=== PATIENT | female | born 1945 | race Caucasian/White ===

== ENCOUNTER 2016-05-17 14:09 | Emergency (ER) | payer MEDICAID, MEDICARE ==
[~2016-05-17] VITALS: Ht 152.4 cm; Wt 57.3 kg
[~2016-05-17 14:09] MED LIST: CLOB15OI TOP; DIT5 PO; FLONASE; ONDA4TAB48 PO; POLY1PAC PO; PROT40T PO; REG10 PO; SEN PO; ULTRAM50 MG PO
[2016-05-17 14:18] VITALS: BP 115/77; PULSE 113; RESP 12; O2SAT 98
--- NOTE | 2016-05-17 14:35 | ED.REPORT ---
HPI-Abd Pain F 40 and Over Date of Service May 17, 2016 ED Provider: Cayden Elizondo DO A 70 year old female with a history of perforated peptic ulcers, gastric outlet obstruction, and SLE presents to the ED complaining of vomiting that began a few months ago. Patient reports worsening decrease in appetite and decreased fluid intake for the past few days. She has been experiencing hematemesis, constipation and coffee ground emesis. Patient has taken sucralfate and Reglan with no relief and is often unable to keep the medications down. Patient reports 3-4 episodes of urination today. Daughter believes her symptoms have become increasingly worse since onset. She has an appointment scheduled with a GI specialist on 06/04. Patient has not had a BM since 04/30. She was recently seen at [facility] on 05/08 for similar symptoms and received a CT scan that was negative. Nursing Notes Stated Complaint: ADBOMINAL PAIN, VOMITING Chief Complaint: Female Abdominal Pain Nursing Notes Reviewed: Yes Allergies: Coded Allergies: Oxycodone Terephthalate (Verified Allergy, Unknown, Hallucinations, ) oxycodone HCl (Verified Allergy, Unknown, Hallucinations, 05/17/16) zolpidem tartrate (Verified Allergy, Unknown, hallucinations, 05/17/16) aspirin (Verified Adverse Reaction, Unknown, ulcers, 05/17/16) Scheduled Clobetasol-Expunged Drug, Do Not Renew! (Temovate 0.05%-Expunged Drug, Do Not Renew!) 15 Gm Tube 1 APPL TOP PRN APPLY TO AFFECTED AREA FLUTICASONE-Expunged Drug, Do Not Renew! (FLONASE-Expunged Drug, Do Not Renew!) 120 Sprays/16 Gm Aero 120 SPRAYS NA PRN MetoCLOpramide-Expunged Drug, Do Not Renew! (MetoCLOpramide-Expunged Drug, Do Not Renew!) 10 Mg Tablet 10 MG PO TIDAC Ondansetron (Zofran) 4 Mg Tab.rapdis 4 MG PO Q6HP DISSOLVE UNDER TONGUE Oxybutynin-Expunged Drug, Do Not Renew! (Oxybutynin-Expunged Drug, Do Not Renew! ) 5 Mg Tablet 10 MG PO HS PEG 3350-Expunged Drug, Do Not Renew! (Miralax-Expunged Drug, Do Not Renew!) 17 Gm/Pkt Packet 17 GM PO DAILY Pantoprazole-Expunged Drug, Do Not Renew! (Protonix-Expunged Drug, Do Not Renew! ) 40 Mg Tablet.dr 40 MG PO BID 40 MG Tramadol-Expunged Drug, Do Not Renew! (Ultram-Expunged Drug, Do Not Renew!) 50 Mg Tab 50 MG PO Q6HP Scheduled PRN Senna-Expunged Drug, Do Not Renew! (Senokot-Expunged Drug, Do Not Renew!) 8.6 Mg Tablet 2 EA PO BID PRN PRN General Time Seen by MD: 14:34 Chief Complaint Vomiting moderate Hx Obtained From: Patient, Daughter Arrived By: Walk-in Sudden in Onset?: No Onset Occurred: More than a week ago... (3 months) Symptom Duration: Since onset Progression since Onset: Gradually worsening Location: : Diffuse Quality: Painful Radiation: : Does not radiate Severity: Current: Mild Severity: Maximum: Moderate Associated with: Reports: Constipation, Hematemesis, Vomiting Pertinent Negative: Pt denies other symptoms Recent Healthcare: Recent doctor visit, Recent hospitalization Past Medical History Past Medical History 1. Gastric outlet obstruction 2. hx of PUD with acute upper GI bleed 3. Chronic headaches takes OTC Excedrin 4. Overactive bladder 5. Fibromyalgia 6. SLE Past Surgical History Surgical repiar of acute bleeding ulcer in (1985) rue en y gastric bypass multiple upper GI endoscopies Hysterectomy Appendectomy Left arm ORIF Pt reports 6+ surgeries (perforated ulcers) - Dr. Varma 1990 Smoking History Unknown if Ever Smoker Social History Other Social History: Good social support, From out of town Ambulatory Status Independent Review of Systems Decreased appetite Decreased fluid intake Constitutional: Reports: Weakness - generalized, Denies: Chills, Fever Cardiovascular: Denies: Chest pain GI: Reports: Abdominal pain, Constipation, Hematemesis, Nausea, Vomiting ( coffee ground vomit) Female: Reports: Urination decreased Complete sys rev & neg: except as marked. Physical Exam Vital Signs Vital Signs (First) Date Time Temp Pulse Resp B/P Pulse Ox O2 Delivery O2 Flow Rate FiO2 05/17/16 14:18 36.5 113 12 115/77 98 Room Air Initial VS: Reviewed Head / Eyes: Atraumatic, Normocephalic, PERRL Extremities: Vascular intact, Neuro intact, No swelling (No lower extremity edema), No tenderness Skin: Warm, Dry, No cyanosis Neurologic: Alert, Oriented, Nonfocal Psychiatric: Mood/affect normal, Behavior normal, Normal thought content General/Constitutional: Awake, Alert Appearance / Presentation: Positive: Cachectic, Frail (Pt appears very weak) Respiratory / Chest: Atraumatic, Breath sounds NL, Breath sounds = bilat, No respiratory distress Cardiovascular: Regular rhythm, Heart sounds NL Heart Rate / Rhythm: Positive: Tachycardia Abdomen: Atraumatic, Soft, No guarding, No rebound Tenderness/Guarding/Rebound: Positive: Tender LUQ... Bowel Sounds / Distention: Positive: Bowel sounds hypoactive ABDOMEN: Midline abdominal scar from epigastric region down to the pubic symphysis Back: Atraumatic Flank / Spine / Paraspinal: Positive: Lumbar paraspinal tend... (Bilateral lumbar tenderness) ENT: Atraumatic, Airway patent, Mucous membranes moist (Lips are dry) Interpretation & Diagnostics Lab Results Interpretation Result Diagram: 05/17/16 1540 05/17/16 1540 Test 05/17/16 15:40 05/17/16 17:44 White Blood Count 10.8th/mm3 (3.8-10.1) Red Blood Count 5.23mil/mm3 (3.90-5.20) Hemoglobin 14.4g/dL (12.0-15.6) Hematocrit 43.7% (35.0-46.0) Mean Corpuscular Volume 83.6fL (81-100) Mean Corpuscular Hemoglobin 27.5pg (27.0-35.0) Mean Corpuscular Hemoglobin Concent 33.0% (32.0-37.0) Red Cell Distribution Width 14.1% (12.3-15.4) Platelet Count 335bil/L (150-400) Neutrophils (%) (Auto) 70.7% (40-74) Lymphocytes (%) (Auto) 19.4% (14-46) Monocytes (%) (Auto) 8.4% (4-12) Eosinophils (%) (Auto) 0.6% (0-5) Basophils (%) (Auto) 0.7% (0-3) Sodium Level 139mEq/L (134-144) Potassium Level 3.2mEq/L (3.5-5.2) Chloride Level 89mEq/L (97-108) Carbon Dioxide Level 22mmol/L (18-29) Blood Urea Nitrogen 21mg/dL (8-27) Creatinine 0.76mg/dL (0.57-1.00) Estimat Glomerular Filtration Rate 107mL/min (>59) Glucose Level 93mg/dL (60-99) Lactic Acid Level 1.5mmol/L (0.4-2.0) Calcium Level 10.9mg/dL (8.5-10.1) Magnesium Level 2.4mg/dL (1.6-2.6) Total Bilirubin 0.4mg/dL (0.0-1.2) Aspartate Amino Transf (AST/SGOT) 27U/L (0-50) Alanine Aminotransferase (ALT/SGPT) 14U/L (0-32) Alkaline Phosphatase 131U/L (25-165) Total Protein 8.8g/dL (6.4-8.4) Albumin 4.9g/dL (3.4-5.0) Prealbumin 25mg/dL (20-40) Lipase 23U/L (13-60) Hold Urine Received (Received) ECG Interpretation ECG Interpretation: Sinus rhythm Rate 83 bpm Inverted T waves in lead 3 (new compared to 06/2012) Probable inferior infarct Time: 15:08 Interpreted by: ED physician CT Abd / Pelvis Interpretation IMPRESSION: 1. No significant change in gastric distention, suggestive of gastrojejunostomy anastomotic narrowing. Dictated by: Tk Luna M.D. 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 She states that the past 2 weeks have been particularly worse and she does not believe she is much of any liquid or food substance to stay down. She has had a total of [address] Orourke , a beauty therapist in [place] who is now retired. The last dialysis session was 6 years ago. She has an appointment with a beauty therapist in [place] in about 3 weeks. She was told by her PCP to come to the [facility] ER today for help with her symptoms. Her labs look remarkably good given all that she describes and her abdominal CT does demonstrate moderate gastric distention with gastrojejunostomy anastomotic stenosis as seen previously. I spoke with our beauty therapist about this finding and he notes that dilating this area is high risk for a rupture and he does not feel comfortable doing this. He recommended a revision surgery at an academic center. I spoke with Dr. Bond our general surgeon who notes that the patient must be worked up by a beauty therapist and if needed can have revision surgery by an academic center but it would not be done here. As patient's labs were normal (other than mild hypokalemia was replaced in the ER) and that she was feeling better after fluids and antiemetics here, and that all of our consultations were unable to help her, I elected to speak with the doctor sonography technologist from her PCPs office and recommend that she be referred to an academic center for further evaluation and treatment. Dr. Tesfaye will convey this to her PCP tomorrow. Patient was very grateful for the help and glad to be feeling somewhat better, although concerned that her symptoms would likely return shortly. She understood and agreed with the plan Re-Evaluation/Progress #1: Time of Eval: 17:10 Patient Status: Condition unchanged Re-Evaluation/Progress Note: Patient is rechecked and reports that her pain is still present and she continues to feel weak. Re-Evaluation/Progress #2: Time of Eval: 18:19 Patient Status: Condition improved Re-Evaluation/Progress Note: She is informed of her lab results and CT results. Her last dilation was 6 months ago. All of the patient's questions are adressed. She understands and agrees with the treatment plan. Consultation #1: Referral / Consult Name: Kingston Bah MD Call Returned at: 18:08 Cake Washer: Agrees with eval, Agrees with plan, Referred to other consult ( referred to surgery ([facility])) Note: GI specialist Recommends re-do rue en y gastric bypass Consultation #2: Referral / Consult Name: Calderon Bond MD Consulted With: Surgeon Call Returned at: 18:44 Cake Washer: Agrees with eval, Agrees with plan, Referred to other consult ( PCP) Note: Pt needs GI workup with endoscopy and possibly balloon procedure or revision surgery Consultation #3: Referral / Consult Name: Alexis Tesfaye MD Consulted With: Primary care physician Call Returned at: 18:58 Cake Washer: Will see patient, Will see in office, Agrees with eval, Agrees with plan Counseled Regarding: Diagnosis, Lab results, Need for follow-up, When/why to return to ED Discharge & Departure Primary Impression: Anastomotic stenosis of gastrojejunostomy Additional Impressions: Nausea & vomiting Vomiting type: unspecified Vomiting Intractability: non-intractable Qualified Code: R11.2 - Nausea with vomiting, unspecified Hypokalemia Hypercalcemia Leukocytosis Leukocytosis type: unspecified Qualified Code: D72.829 - Elevated white blood cell count, unspecified Disposition: Home Discharge Condition All VS Reviewed: Yes Condition: Improved Patient Instructions: Acute Nausea and Vomiting (ED), Hypokalemia (ED) Additional Instructions: Thank you for trusting us with your care this morning. Your emergency department evaluation including examination, abdominal CT and lab work. I believe the cause for your symptoms are related to a gastrojejunal anastomotic stenosis leading to stomach distention and causing the severe nausea and vomiting you have had. I have consulted with gastroenterology and surgery here and as we discussed they do not feel comfortable doing procedures on you given your complex history. I believe your lab work that you are stable to be discharged home, however I believe you need very close follow-up with a good beauty therapist that could perform a dilation or refer you to an academic center for revision of your gastric bypass. I have discussed your care with Dr. Lynn, a partner of Dr. Young. Please schedule a follow-up appointment with Dr. Young;s office tomorrow to help you schedule a full gastroenterology workup and possible surgical consultation. You may want to consider [facility] or [facility] for the surgery. Please return to the emergency department immediately for any new or worsening conditions including any worsening pain, fevers, chills, worsening pain or uncontrollable vomiting. I hope you feel better soon! Referrals: Kingston Pineda MD (PCP) Megan Young PA-C, John R. MD Scribe Attestation Portions of this note were transcribed by Randy Gutierrez. Idalia, Dr. Elizondo personally performed the history, physical exam and medical decision-making; I reviewed and confirmed the accuracy of the information in the transcribed note. Signed by: Marichuy Nair, 05/17/161909. copies to: Megan Young PA-C; Alexis Tesfaye MD; Kingston Pineda MD, Gary R DO May 17, 2016 14:35 RANDY GUTIERREZ May 17, 2016 14:41
[2016-05-17] MEDS ORDERED: 0.9% Sodium Chloride 1,000 ML IV ONE (14:48)
[2016-05-17] MEDS ORDERED: Pantoprazole 4 mg/mL 10 mL Inj IVPUSH ONE (14:50)
[2016-05-17] MEDS ORDERED: LidocaineVisc 2%:Antacid 1:1 10 mL Syringe PO ONE (14:50)
[2016-05-17] MEDS ORDERED: Ondansetron 2 mg/mL 2 mL Inj IVPUSH ONE (14:50)
[2016-05-17] MEDS ORDERED: MetoCLOpramide 5 mg/mL 2 mL Inj IVPUSH ONE (14:50)
[2016-05-17] MEDS ORDERED: Iohexol 300 mg/mL 30 mL Inj PO ONE (15:25)
[2016-05-17 16:12] LABS: BASOPHILS % (AUTO) 0.7 % (0-3); EOSINOPHILS % (AUTO) 0.6 % (0-5); MONOCYTES % (AUTO) 8.4 % (4-12); Mean Corpuscular Hemoglobin 27.5 pg (27.0-35.0); Mean Corpuscular Volume 83.6 fL (81-100); NEUTROPHILS % (AUTO) 70.7 % (40-74); Platelet Count 335 bil/L (150-400)
[2016-05-17 16:27] LABS: Magnesium 2.4 mg/dL (1.6-2.6)
[2016-05-17 16:32] VITALS: BP 115/60; PULSE 91; RESP 19; O2SAT 100
--- NOTE | 2016-05-17 16:58 | DRSVH ---
PROCEDURE: CT ABDOMEN AND PELVIS WITH CONTRAST ([id number]) INDICATIONS: abd pain TECHNIQUE: After the administration of oral and intravenous contrast, 5 mm thick sections acquired from the diap hragms to the symphysis. 5 mm thick coronal and sagittal reformats were performed. For radiation do se reduction, the following was used: automated exposure control, adjustment of mA and/or kV accordi ng to patient size. COMPARISON: Merged With [facility], CT, ABDOMEN/PELVIS WITH CONTRAST, 05/08/2016, 12:39. FINDINGS: Image quality: Excellent. ABDOMEN: Lung bases: Lung bases are clear. Heart size is normal. Solid organs: Liver and spleen are normal in size and enhancement. Gallbladder is surgically absent . Biliary system is non-dilated. Pancreas enhances normally. No adrenal nodules. Kidneys are norm al in size and enhancement, without hydronephrosis. Peritoneum and bowel: Gastrojejunostomy has been performed. Moderate gastric distention is unchanged . Small bowel is nondistended. No free fluid or air. Nodes and vessels: No retroperitoneal or mesenteric adenopathy. Aorta and inferior vena cava are no rmal in caliber. Miscellaneous: No ventral hernias. PELVIS: Genitourinary: Bladder wall thickness is normal. Miscellaneous: No inguinal hernias or adenopathy. Bones: No suspicious bony lesions. No vertebral body compression fractures. IMPRESSION: 1. No significant change in gastric distention, suggestive of gastrojejunostomy anastomotic narrowing . Dictated by: Tk Luna M.D. on 05/17/2016 at 16:55 Approved by: Tk Luna M.D. on 05/17/2016 at 16:57
[2016-05-17] MEDS ORDERED: Potassium Chloride 20 mEq/15 mL 15mL Oral Soln PO ONE (17:05)
[2016-05-17 19:30] VITALS: BP 120/68; PULSE 89; RESP 17; O2SAT 97
[2016-06-01] MEDS ORDERED: MULT-666 PO (12:47)
[2016-06-01] MEDS ORDERED: excedrin PO (12:47)
[2016-06-30] MEDS ORDERED: SUCR1TAB PO (13:19)
== END 2016-05-17 19:25 | disposition home or self-care (01) ==
LOC: SED 14:09
DX: K91.89 Other postprocedural complications and disorders of digestive system (principal); R11.2 Nausea with vomiting, unspecified; E87.6 Hypokalemia; E83.52 Hypercalcemia; D72.829 Elevated white blood cell count, unspecified; K31.1 Adult hypertrophic pyloric stenosis; M32.9 Systemic lupus erythematosus, unspecified; Z87.11 Personal history of peptic ulcer disease; Z98.84 Bariatric surgery status; Z88.5 Allergy status to narcotic agent; Z88.8 Allergy status to other drugs, medicaments and biological substances; Z88.6 Allergy status to analgesic agent
CPT/HCPCS: 36415; 74177; 80053; 83605; 83690; 83735; 84134; 85025; 93005; 96361; 96374; 96375; 99285; J2405; J2765; J7030; Q9967

== ENCOUNTER 2016-05-22 13:32 | Observation (INO) | payer MEDICARE ==
[~2016-05-22] VITALS: Ht 152.4 cm; Wt 53.6 kg
[2016-05-22 13:35] VITALS: BP 129/67; PULSE 68; RESP 16; O2SAT 100
--- NOTE | 2016-05-22 15:11 | ED.REPORT ---
HPI-Abd Pain F 40 and Over Date of Service May 22, 2016 ED Provider: Dr. Manuel Anderson M.D. 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 She was supposed to receive an endoscopy procedure today but the impaction was noticed on an abdominal CT from her last ER visit (). The patient currently reports left-sided and periumbilical abdominal pain, constipation (last BM 04/30/16), nausea, and vomiting. She denies dysuria, chest pain, shortness of breath, or other symptoms. She was in the ED with similar symptoms five days ago. Nursing Notes Stated Complaint: IMPACTED (SENT BY DR OFFICE) Chief Complaint: Female Abdominal Pain Nursing Notes Reviewed: Yes Allergies: Coded Allergies: Oxycodone Terephthalate (Verified Allergy, Unknown, Hallucinations, ) ibuprofen (Verified Allergy, Unknown, Abdominal Pain, 05/22/16) morphine (Verified Allergy, Unknown, Hallucinations, 05/22/16) oxycodone HCl (Verified Allergy, Unknown, Hallucinations, 05/17/16) zolpidem tartrate (Verified Allergy, Unknown, hallucinations, 05/17/16) aspirin (Verified Adverse Reaction, Unknown, ulcers, 05/17/16) Scheduled Cholecalciferol (Vitamin D3) (Vitamin D) 1,000 Unit Capsule 2,000 UNIT PO DAILY Metoclopramide (Reglan) 5 Mg Tablet 5 MG PO QID Multivitamin (Multivitamins) 1 Each Capsule 1 EACH PO DAILY Omeprazole (Omeprazole) 40 Mg Capsule.dr 40 MG PO BID Sucralfate (Sucralfate) 1 Gm Tablet 1 GM PO QID Scheduled PRN Aspirin/Acetaminophen/Caffeine (Vtwkkmb-Mdhjilpemjtxw-Cmem Tab) 250 Mg-250 Mg- 65 Mg Tablet 2 EACH PO DAILY PRN PRN Headache Ondansetron ODT (Ondansetron ODT) 4 Mg Tab.rapdis 8 MG PO BID PRN PRN For Nausea General Time Seen by MD: 15:10 Chief Complaint Other (Fecal Impaction) Hx Obtained From: Patient Arrived By: Walk-in Sudden in Onset?: No Onset Occurred: More than a week ago... (3 weeks) Symptom Duration: Since onset Location: : LLQ: LUQ: Periumbilical Quality: Painful Severity: Current: Moderate Severity: Maximum: Moderate Associated with: Reports: Constipation, Nausea, Vomiting Pertinent Negative: Relieved by nothing Context Related History: Reports: Abdominal surgery, Bowel obstruction, Peptic ulcer disease Recent Healthcare: Recent doctor visit Similar Sx Previous: Yes Past Medical History Past Medical History Notes: Past Medical History 1. Gastric outlet obstruction 2. hx of PUD with acute upper GI bleed 3. Chronic headaches takes OTC Excedrin 4. Overactive bladder 5. Fibromyalgia 6. SLE 7. Recurrent gastrojejunostomy anastomotic stenosis Past Surgical History Surgical repair of acute bleeding ulcer in (1985) Domingo-en-Y gastric bypass Multiple upper GI endoscopies Hysterectomy Appendectomy Left arm ORIF Pt reports 6+ surgeries (perforated ulcers) - Dr. Varma 1990 Multiple gastric dilations Smoking History Unknown if Ever Smoker Social History Other Social History: Good social support, From out of town Ambulatory Status Independent Review of Systems + Fecal impaction Constitutional: Denies: Fever Respiratory: Denies: Shortness of breath Cardiovascular: Denies: Chest pain GI: Reports: Abdominal pain (Left-sided and periumbilical), Constipation, Nausea, Vomiting Female: Denies: Dysuria Complete sys rev & neg: except as marked. Physical Exam Vital Signs Vital Signs (First) Date Time Temp Pulse Resp B/P Pulse Ox O2 Delivery O2 Flow Rate FiO2 05/22/16 13:35 35.9 68 16 129/67 100 Room Air Initial VS: Reviewed Head / Eyes: Atraumatic, Normocephalic Neck: Supple, Full range of motion Skin: Warm, Dry Neurologic: Alert, Oriented, Nonfocal Psychiatric: Mood/affect normal, Behavior normal, Normal thought content General/Constitutional: Awake, Alert, No acute distress Respiratory / Chest: Breath sounds NL, Breath sounds = bilat, No respiratory distress Cardiovascular: Heart rate NL, Regular rhythm, Heart sounds NL, No gallop, No murmurs, No rubs Abdomen: Atraumatic, Soft, Non-tender, No guarding, No rebound, BS normoactive Back: Atraumatic, No CVA tenderness Head / Eyes: Atraumatic, Normocephalic, PERRL, EOMI ENT: Airway patent, Mucous membranes moist Skin: Atraumatic, Color NL, No rash Rectum / Perineum: Atraumatic, Blood - occult heme -, No gross blood No stool in vault Nontender Interpretation & Diagnostics ABDOMINAL CT W/ ORAL AND IV CONTRAST from previous ED visit (05/17/16): IMPRESSION: 1. No significant change in gastric distention, suggestive of gastrojejunostomy anastomotic narrowing. Dictated by: Tk Luna M.D. on 05/17/2016 at 16:55 Lab Results Interpretation Result Diagram: 05/22/16 1549 05/22/16 1549 Test 05/22/16 15:49 05/22/16 16:25 White Blood Count 9.1th/mm3 (3.8-10.1) Red Blood Count 4.64mil/mm3 (3.90-5.20) Hemoglobin 12.7g/dL (12.0-15.6) Hematocrit 38.7% (35.0-46.0) Mean Corpuscular Volume 83.4fL (81-100) Mean Corpuscular Hemoglobin 27.4pg (27.0-35.0) Mean Corpuscular Hemoglobin Concent 32.8% (32.0-37.0) Red Cell Distribution Width 13.8% (12.3-15.4) Platelet Count 261bil/L (150-400) Neutrophils (%) (Auto) 64.8% (40-74) Lymphocytes (%) (Auto) 21.8% (14-46) Monocytes (%) (Auto) 11.4% (4-12) Eosinophils (%) (Auto) 0.9% (0-5) Basophils (%) (Auto) 0.9% (0-3) Sodium Level 133mEq/L (134-144) Potassium Level 2.8mEq/L (3.5-5.2) Chloride Level 89mEq/L (97-108) Carbon Dioxide Level 26mmol/L (18-29) Blood Urea Nitrogen 14mg/dL (8-27) Creatinine 0.59mg/dL (0.57-1.00) Estimat Glomerular Filtration Rate 144mL/min (>59) Glucose Level 113mg/dL (60-99) Calcium Level 10.0mg/dL (8.5-10.1) Total Bilirubin 0.3mg/dL (0.0-1.2) Aspartate Amino Transf (AST/SGOT) 19U/L (0-50) Alanine Aminotransferase (ALT/SGPT) 11U/L (0-32) Alkaline Phosphatase 92U/L (25-165) Total Protein 7.6g/dL (6.4-8.4) Albumin 4.2g/dL (3.4-5.0) Hold Lemon Top Tube Received (Received) Re-Eval/Medical Decision Med Decision/Clinical Course 70-year-old female with extensive history of gastric outlet obstruction requiring recurrent endoscopic dilations. She presents today with vomiting anytime she tries to take anything by mouth and by her report 3 weeks without a bowel movement. The patient states that on multiple occasions in the past when she has had gastric outlet obstruction, she would have extensive constipation that relieved spontaneously once they I will let obstruction was relieved. The GI service has concerns based on imaging that she has constipation could be severe enough to cause her vomiting. She is clinically dehydrated and hypokalemic. The recommendation from GI for a Gastrografin enema which would be therapeutic. After discussion with radiology, an after hours Gastrografin enema in a dehydrated hypokalemic elderly woman is not felt to be prudent. He was admitted to the hospitalist service on observation status, hydrated and potassium replaced. In an attempt to begin relieving her obstruction, we will start oral Gastrografin as well. Dr. Jackman from GI is aware of the patient's expressed history of frequent constipation related to gastric outlet obstruction. 40meq potassium and NS 1L in ED. Source of Hx: Old records Re-Evaluation/Progress #1: Time of Eval: 18:34 Patient Status: Condition improved Re-Evaluation/Progress Note: Patient rechecked. Rectal exam performed. Re-Evaluation/Progress #2: Time of Eval: 19:31 Patient Status: Condition improved Re-Evaluation/Progress Note: Discussed with patient lab results, diagnosis, and plan for admit with Gastrografin enema in the morning. Patient agrees with plan for care and all questions were addressed. She requests an eventual gastric dilation, which has relieved her symptoms in the past. Code status discussed in the presence of her daughter. Patient is FULL CODE. Consultation #1: Referral / Consult Name: Manuel Bush MD Call Returned at: 18:47 Company Manager: Agrees with eval, Agrees with plan Note: GI: Recommends oral Gastrografin tonight and admit with Gastrografin enema in the morning Consultation #2: Referral / Consult Name: Dmitriy Crow MD Consulted With: Hospitalist Call Returned at: 19:48 Company Manager: Agrees with eval, Agrees with plan, Accepts admit Consultation #3: Referral / Consult Name: Manuel Bush MD Call Returned at: 20:03 Company Manager: Agrees with eval, Agrees with plan Note: GI: Updated with patient's case. Counseled Regarding: Diagnosis, Lab results, Need for admission Discharge & Departure Primary Impression: Dehydration Additional Impressions: Obstipation Hypokalemia Disposition: ADMITTED TO HOSPITAL Discharge Condition All VS Reviewed: Yes Condition: Improved Referrals: Megan Young PA-C (PCP) Florian Rivas PA-C Attestation Portions of this note were transcribed by Christin Chauhan. I, Dr. Anderson, personally performed the history, physical exam, and medical decision-making; I reviewed and confirmed the accuracy of the information in the transcribed note. Signed by: Marichuy Womack, 05/22/2016, 23:00 copies to: Megan Young PA-C; Florian Rivas PA-C, Donald L MD May 22, 2016 15:11 CHRISTIN CHAUHAN May 22, 2016 15:24
[2016-05-22] MEDS ORDERED: 0.9% Sodium Chloride 1,000 ML IV ONE (15:31)
[2016-05-22] MEDS ORDERED: Ondansetron 2 mg/mL 2 mL Inj IV PRN (15:35)
[2016-05-22 16:06] LABS: BASOPHILS % (AUTO) 0.9 % (0-3); EOSINOPHILS % (AUTO) 0.9 % (0-5); MONOCYTES % (AUTO) 11.4 % (4-12); Mean Corpuscular Hemoglobin 27.4 pg (27.0-35.0); Mean Corpuscular Volume 83.4 fL (81-100); NEUTROPHILS % (AUTO) 64.8 % (40-74); Platelet Count 261 bil/L (150-400)
[2016-05-22] MEDS ORDERED: Potassium Chloride 20 mEq/15 mL 15mL Oral Soln PO ONE (18:45)
[2016-05-22] MEDS ORDERED: Alum-Mag Hydrox-Simeth 30 mL Suspension PO PRN (19:50)
[2016-05-22] MEDS ORDERED: Polyethylene Glycol (PEG) 17 Gm Powder PO PRN (19:50)
[2016-05-22] MEDS ORDERED: METO5TAB78 PO (20:11)
[2016-05-22] MEDS ORDERED: CHOL100045 PO (20:11)
[2016-05-22] MEDS ORDERED: ONDA4TAB12 PO (20:11)
[2016-05-22] MEDS ORDERED: ASPI-1148 PO (20:11)
[2016-05-22] MEDS ORDERED: OMEP40CA36 PO (20:11)
[2016-05-22] MEDS ORDERED: MULT1CAP33 PO (20:11)
[2016-05-22] MEDS ORDERED: SUCR1TAB PO (20:11)
[2016-05-22 21:01] LABS: APPEARANCE,URINE CLEAR (CLEAR,HAZY); COLOR,URINE YELLOW (YELLOW)
[2016-05-22 21:02] LABS: OCCULT BLOOD,URINE NEGATIVE (NEGATIVE); UROBILINOGEN,URINE NORMAL (NORMAL)
[2016-05-22] MEDS: 0.9% Sodium Chloride 1,000 ML IV SCH (21:45)
[2016-05-22 21:51] VITALS: BP 116/79; PULSE 67; RESP 18; O2SAT 98
--- NOTE | 2016-05-22 22:07 | PCM.HPMED ---
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 emergency department from her clean up supervisor's office for an enema to resolve a fecal impaction at the transverse and right colon. She was supposed to receive an endoscopy procedure today but the impaction was noticed on an abdominal CT from her last ER visit (05/17/16). The patient currently reports left-sided abdominal pain, constipation (last BM 04/30/16) she attributes this to being dehydrated since she cannot keep fluids down Patient has been complaining of hematemesis/nausea/vomiting. He states that symptoms started 3 months ago and have progressively worsened. She cannot eat, nor can she keep fluids down--has vomited red blood, as well as, coffee-grounds. She denies dysuria, chest pain, shortness of breath, or other symptoms. She is requesting a dilatation procedure today--she believes this is the source of her problem She does report using cannabis oil for her chronic pain issues. Not currently on any narcotics Case discussed with Dr Anderson, due to persistent nausea and vomiting, patient will be admitted to receive enema in an effort to clear her fecal impaction Review of Systems: Pertinent positives as noted in HPI. All other systems were reviewed and are negative Allergies Coded Allergies: Oxycodone Terephthalate (Verified Allergy, Unknown, Hallucinations, ) ibuprofen (Verified Allergy, Unknown, Abdominal Pain, 05/22/16) morphine (Verified Allergy, Unknown, Hallucinations, 05/22/16) oxycodone HCl (Verified Allergy, Unknown, Hallucinations, 05/17/16) zolpidem tartrate (Verified Allergy, Unknown, hallucinations, 05/17/16) aspirin (Verified Adverse Reaction, Unknown, ulcers, 05/17/16) Home Medications From Mindi RichCasper [id number] 1945 05/22/2016 11:30 AM 02/26 Excedrin Extra Strength multivitamin tablet potassium Prilosec 40 mg capsule,delayed release take 1 capsule by oral route every day before a meal Reglan 5 mg tablet take 1 tablet by oral route 4 times every day 30 minutes before meals and at bedtime sucralfate 1 gram tablet take 1 tablet by oral route 4 times every day on an empty stomach 1 hour before meals and at bedtime Vitamin D3 Zofran ODT 4 mg disintegrating tablet take 2 tablet by oral route every [address] on top of the tongue where they will dissolve, then swallow PMH 1. Gastric outlet obstruction 2. Acute upper GI bleed with perforated gastric ulcer 3. Chronic headaches takes OTC Excedrin 4. Overactive bladder 5. Fibromyalgia 6. Systemic Lupus, diagnosis questioned in light of recent blood work showing no evidence of Lupus . Surgical History Revised Billroth II, complicated with post operative complications including infection Hysterectomy Appendectomy Left arm ORIF Family History No history of cancer Social History Hx Alcohol Use: No Hx Substance Use: No Hx Tobacco Use: No Smoking Status: Never Smoker Living Arrangement: with Family (with daughter) Exam Vital Signs Vital Sign - Last Date Time Temp Pulse Resp B/P Pulse Ox O2 Delivery O2 Flow Rate FiO2 05/22/16 13:35 35.9 68 16 129/67 100 Room Air Exam General: Alert, Oriented X3, Cooperative, No acute Distress Eyes: PERRLA, Scleral Anicteric Mouth: Mouth Normal, Mucous Membranes Moist/[place] Neck: Supple, no Thyromegaly, trachea central. Chest & Lungs: Clear to auscultation & percussion, No adventitious breath sounds, no crackles, no wheeze Cardiovascular: Normal S1, Normal S2, No Murmurs/Rubs/Gallops, Regular Rate/ Rhythm, (No JVD, no peripheral edema) Pulses: Radial (present and equal), Dorsalis Pedi (present and equal) Abdomen: Soft, diffusely tender, Non-distended, hypoactive bowel tones. Musculoskeletal: Unremarkable. Normal range of motion, no swollen or erythematous joints Extremities: No edema, no cyanosis, no clubbing. Skin: No rashes. Warm and dry, no erythematous areas Neurological: Grossly neurologically intact, Normal Speech, Sensation Intact Lymphatic: Lymph nodes Cervical and Axillary not palpable Lab and Diagnostics Labs Laboratory Tests Test 05/22/16 15:49 05/22/16 16:25 05/22/16 20:43 White Blood Count 9.1th/mm3 (3.8-10.1) Red Blood Count 4.64mil/mm3 (3.90-5.20) Hemoglobin 12.7g/dL (12.0-15.6) Hematocrit 38.7% (35.0-46.0) Mean Corpuscular Volume 83.4fL (81-100) Mean Corpuscular Hemoglobin 27.4pg (27.0-35.0) Mean Corpuscular Hemoglobin Concent 32.8% (32.0-37.0) Red Cell Distribution Width 13.8% (12.3-15.4) Platelet Count 261bil/L (150-400) Neutrophils (%) (Auto) 64.8% (40-74) Lymphocytes (%) (Auto) 21.8% (14-46) Monocytes (%) (Auto) 11.4% (4-12) Eosinophils (%) (Auto) 0.9% (0-5) Basophils (%) (Auto) 0.9% (0-3) Sodium Level 133mEq/L (134-144) Potassium Level 2.8mEq/L (3.5-5.2) Chloride Level 89mEq/L (97-108) Carbon Dioxide Level 26mmol/L (18-29) Blood Urea Nitrogen 14mg/dL (8-27) Creatinine 0.59mg/dL (0.57-1.00) Estimat Glomerular Filtration Rate 144mL/min (>59) Glucose Level 113mg/dL (60-99) Calcium Level 10.0mg/dL (8.5-10.1) Total Bilirubin 0.3mg/dL (0.0-1.2) Aspartate Amino Transf (AST/SGOT) 19U/L (0-50) Alanine Aminotransferase (ALT/SGPT) 11U/L (0-32) Alkaline Phosphatase 92U/L (25-165) Total Protein 7.6g/dL (6.4-8.4) Albumin 4.2g/dL (3.4-5.0) Hold Lemon Top Tube Received (Received) Received (Received) Urine Color Yellow (YELLOW) Urine Appearance Clear (CLEAR,HAZY) Urine pH 7.0 (5.0-8.0) Urine Specific [place] 1.010 (1.003-1.035) Urine Protein Negativemg/dL (NEG,TRACE) Urine Glucose (UA) Negativemg/dL (NEGATIVE) Urine Ketones >80mg/dL (NEGATIVE) Urine Occult Blood Negative (NEGATIVE) Urine Nitrite Negative (NEGATIVE) Urine Bilirubin Negative (NEGATIVE) Urine Urobilinogen Normalmg/dL (NORMAL) Urine Leukocyte Esterase Negative (NEGATIVE) Urine RBC 0-2/hpf (0-2) Urine WBC 0-5/hpf (0-5) Urine Epithelial Cells Moderate/hpf (NONE-MOD) Urine Crystals None seen (NONE SEEN) Urine Bacteria Few/hpf (NONE-FEW) Urine Hyaline Casts Occasional/lpf (NONE) Urine Granular Casts None seen (NONE SEEN) Urine Waxy Casts None seen (NONE SEEN) Urine Red Blood Cell Casts None seen (NONE SEEN) Urine White Blood Cell Casts None seen (NONE SEEN) Urine Mucus None seen (None Seen) Urine Trichomonas None seen (NONE SEEN) Urine Yeast None (NONE SEEN) Urinalysis Comment None Urine Culture Reflexed Not indicated Result Diagram: 05/22/16 1549 05/22/16 1549 Assessment & Plan Mindi Chavez is a 70 year old female with a medical history including, PUD with acute upper GI bleed, gastric outlet obstruction, and 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 emergency department due to fecal impaction 1. Persistent nausea and vomiting due to Gastric outlet obstruction. Present on admission Patient reports having to have dilation procedure at least 30 times. Patient hoping for another dilation procedure which usually helps with her symptoms - IV fluids resuscitations - nothing by mouth - antiemetic with Zofran PRN 2. Acute fecal impaction. Present on admission Typical for patient to have constipation but not this prolong. - plan for gastografin enema tomorrow 3. Hematemesis. Present on admission. 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 No active bleeding at this time - continue PPI - monitor for further bleeding 4 Hypokalemia. Present on admission Due to vomiting - monitor on telemetry - continue supplementation - Acetaminophen as needed for mild pain/fever/headache - Bowel regimen as needed - Antiemetic as needed Patient is admitted under observation status with expected length of stay less than 2 midnights due to severity of presenting symptoms, risk of adverse event, and complexity of treatment plan. . Resuscitation Status: CPR: Attempt Resuscitation Dmitriy Crow MD May 22, 2016 21:16
--- NOTE | 2016-05-22 23:01 | NUR ---
Admit to room 3031 @21:30 with hyperkalemia, dehydration and obstipation. Alert and oriented x3. Pain 0/10, VSS sat'ing 98% on RA. Oriented to room and poc on whiteboard.
[2016-05-23] VITALS (7 sets, daily range): BP systolic 98–128; BP diastolic 61–68; PULSE 66–80; RESP 16–20; O2SAT 93–99
--- NOTE | 2016-05-23 04:11 | NUR ---
Requesting Gastric Dilation Patient concerned that only gastric dilation will resolve constipation and intestinal stricture. All other tests and procedures are expensive and unnecessary.
--- NOTE | 2016-05-23 06:29 | NUR ---
BM Liquid bowel movement 50cc this AM 06:15
[2016-05-23] MEDS: 0.9% Sodium Chloride 1,000 ML IV SCH (07:11)
--- NOTE | 2016-05-23 11:31 | NUR ---
Communication with dtr Pt req dtr Hope be called and updated (cell [phone]). Dtr called and updated by this RN.
--- NOTE | 2016-05-23 14:13 | CONS ---
[address] [address] CONSULTATION REPORT PATIENT: ABDULKADIR WHITE : 1945 MR#: [id number] ADMIT: 05/22/2016 JOB ID: [id number] DATE OF SERVICE: 05/23/2016 REQUESTING PROVIDER: Manuel Anderson MD, and Dmitriy Crow MD. REASON FOR CONSULTATION: Nausea, vomiting. HISTORY OF PRESENT ILLNESS: This is a 70-year-old female with a history of Billroth II surgery, who has had numerous complications from that surgery requiring eight separate surgeries and redo's. This was done in the mid to late s. Over the years, she has had more than 30 dilatations of her anastomosis but this has not been accomplished in the last six years. Previously it was done by Dr. Orourke from in [place] after she moved to the [facility] from [place] some 16,17 years ago. The patient reports that at her baseline, she has a bowel movement about every four days. However, in more recent time, over the last 3-4 months, she has had significant increasing difficulty with nausea and vomiting and p.o. intolerance. As of April 30, she has not any significant stool output short of a couple of small balls of hard stool. She has also had some discomfort in the left upper quadrant region chronically over this time frame. She was seen by the physician energy assistant in our clinic yesterday and had been complaining of profuse nausea, vomiting, p.o. intolerance. I recommended urgent attention over in the hospital. She was routed to the emergency department and I had originally recommended a therapeutic Gastrografin enema. It sounds like the ER chose to give oral Gastrografin. I do not see a record of that in the computer, but the patient is certain that this happened and she has actually had a remarkably nice result. She has had release of the discomfort right up in the left upper quadrant and this morning now has had two large bowel movements. She has a lot of abdominal gurgling. She is currently not having any nausea, vomiting, and is actually quite a bit improved. ALLERGIES: 1. OXYCODONE. 2. TEREPHTHALATE. 3. ASPIRIN. 4. IBUPROFEN. 5. MORPHINE. 6. OXYCODONE. 7. ZOLPIDEM. MEDICATIONS: The patient regularly takes: 1. Excedrin with aspirin and caffeine. 2. She uses Reglan. 3. Omeprazole. 4. Zofran. 5. Sucralfate. 6. Vitamin D. 7. Multivitamin. 8. It looks like she was written for Protonix twice a day as well. 9. She was additionally taking tramadol. 10. Senna. 11. MiraLAX. 12. Oxybutynin. 13. Fluticasone spray. 14. Clobetasol ointment. PAST MEDICAL HISTORY: Constipation, fibromyalgia, chronic pain, lupus, overactive bladder, headaches, gastric ulcer, recurrent difficulties with her anastomosis. She had a Billroth-II that is been revised as above many times starting back in the 1980s for peptic ulcer disease. She has had hysterectomy, appendectomy, and left arm orthopedic surgery. FAMILY HISTORY: Noncontributory. SOCIAL HISTORY: Her grandson is here visiting. No habits. She uses high CBD, low THC cannabis on a regular basis to help with her pain and headaches. REVIEW OF SYSTEMS: Overall quite improved overnight here in the hospital. Otherwise, no report of any complaints in her other organ systems. PHYSICAL EXAMINATION: Vital signs are stable. The patient is in no distress. Conversational, alert, oriented, appropriate, cooperative. Lungs clear bilaterally. Good respiratory effort. Heart regular. No peripheral pitting edema. Abdomen is soft, nondistended, nontender. Bowel sounds are active. LABORATORIES: CBC is normal. She had some hypokalemia on admission that has been corrected. Today basic metabolic panel has normalized. Calcium is normal. Liver tests are normal. No UTI. IMAGING: CAT scan from May 17 was reviewed and she had a moderate amount of retained stool all throughout the ascending and transverse colon. ASSESSMENT AND PLAN: This is a 70-year-old female with a remote partial gastrectomy for peptic ulcer disease that has been complicated by severe recurrent stenosis requiring dilatations in addition to the eight subsequent surgeries she is apparently had. Fortunately, however, she has done well for the last six years and not required any further dilatations. In recent months, she has had increasing p.o. intolerance, nausea, and vomiting. with a severe and notable drop-off in stool output. Her CAT scan suggests obstipation from the splenic flexure to the cecum, and I suspect this is largely the source for all of her symptoms in that she is currently markedly improved with bowel output. Ultimately, she will need to be evaluated with colonoscopy and this can be accomplished in the outpatient setting. Acutely, I have put her on a full liquid smoothie diet today and have recommended we hold off on the Gastrografin and continue with oral laxative. I have requested another dose of MiraLAX this afternoon. She should be n.p.o. after midnight and will have a look at her Billroth-II anastomosis tomorrow. Anesthesia, will be requested considering her numerous drug allergies, including oxycodone and morphine. COMMENT: Please note that this is no-charge physician encounter. Please do not submit charges for today's note.
--- NOTE | 2016-05-23 15:15 | NUR ---
Social Work: Initial Assessment Data: Pt is a 70 y/o female admitted for dehydration, obstipation, hypokalemia. Pt's PCP is Dr Young, pt's insurance is Medicare. EMR reviewed. Readmit score not listed. DRYCLEANER met with pt at bedside, role explained. Pt states she lives at home with her daughter in a single story home where she uses no DME. Pt states that she has no hx of HH or SNF, no LTC or VA benefits, and is not a caregiver. Pt accepted info regarding AD/DPOA. No d/c planning needs anticipated at this time. DRYCLEANER will continue to follow if needs arise. Assessment: Pt who is independent at baseline. Plan: Pt will d/c home via POV when medically stable. No d/c planning needs anticipated at this time. DRYCLEANER will continue to follow if needs arise. CHATO Donato Addendum: 05/23/16 at 1517 by NADINE LOPEZ Amended: Links added.
[2016-05-23] MEDS ORDERED: Polyethylene Glycol (PEG) 17 Gm Powder PO ONE (15:25)
--- NOTE | 2016-05-23 15:27 | PCM.PNMED ---
Subjective Date of Service May 23, 2016 Subjective denies any new issues/complaints. refused enema last night. Exam Vital Signs Vital Sign - Last Date Time Temp Pulse Resp B/P Pulse Ox O2 Delivery O2 Flow Rate FiO2 05/23/16 14:23 36.4 70 20 128/66 99 Room Air Intake and Output 05/22/16 05/22/16 05/23/16 Cumulative From/Thru 15:00 23:00 07:00 05/22/16 13:35 - 05/23/16 06:35 Intake Total 1000 ml 850 ml 1850 ml Output Total 100 ml 100 ml Balance 1000 ml 750 ml 1750 ml Intake Oral 0 ml 0 ml IV Total 1000 ml 850 ml 1850 ml Output Urine Total 100 ml 100 ml # Bowel Movements 1 1 General: Alert, Oriented X3, Cooperative, No Acute Distress Eyes: Scleral Anicteric Nose: Mucous Membr Moist/[place] Mouth: Mucous Membr Moist/[place] Neck: Supple Chest & Lungs: Chest Wall Normal, Clear to auscultation & percussion Cardiovascular: Regular Rate/Rhythm Pulses: NL carotid, radial, femoral, DP, PT Abdomen: Non-tender, Non-distended, Normoactive bowel tones, Soft Extremities: No cyanosis/clubbing/edma bilat Neurological: Grossly Neurologically Intact, Normal Speech IVs and Medications Medications Reviewed: Medications were reviewed in detail Lab and Diagnostics Result Diagram: 05/22/16 1549 05/23/16 0611 Assessment & Plan 70 year old female with a medical history including, PUD with acute upper GI bleed, gastric outlet obstruction, and 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 Persistent nausea and vomiting due to Gastric outlet obstruction. Present on admission Patient reports having to have dilation procedure at least 30 times. Patient hoping for another dilation procedure which usually helps with her symptoms - appreciate GI consult. will f/u w/ recs - IV fluids resuscitations - nothing by mouth after midnight - antiemetic with Zofran PRN 2. Acute fecal impaction. Present on admission - pt refused enema on admission - will f/u w/ GI recs 3. Hematemesis. Present on admission. 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 No active bleeding at this time - continue PPI - monitor for further bleeding 4. Hypokalemia. Present on admission. Resolved. - monitor on telemetry 5. Acute hyponatremia and hypochloremia. poa. - resolved with IVF - f/u Dispo: 1-2 days pending GI workup Resuscitation Status: CPR: Attempt Resuscitation Nino Pichardo May 23, 2016 15:27
[2016-05-23] MEDS ORDERED: 0.9% NaCl + KCl 20 mEq/L 1,000 ML IV ONE (15:30)
--- NOTE | 2016-05-23 15:45 | NUR ---
CAITLYN explained and signed. Pt's daughter Hope at bedside. Copy of CAITLYN and Medicare self administered medication information given to pt.
--- NOTE | 2016-05-23 18:06 | NUR ---
new order Verbal orders received from Dr. Bush for Miralax one time. Miralax given as ordered. patient having loose stool r/t miralax current diet full liquid. Scope procedure tomorrow per GI doctor. patient will be NPO after midnight per orders. Alert and oriented X3. no sign and symptoms of pain noted. uses call light appropriately and with in reach for safety. New orders for NS with KCL via IV and infusing as ordered rate with out difficulty. Stable mood. Continue to monitor.
[2016-05-24] VITALS (8 sets, daily range): BP systolic 120–143; BP diastolic 67–110; PULSE 65–77; RESP 16–20; O2SAT 97–100
--- NOTE | 2016-05-24 06:00 | NUR ---
Activity Pt up ambulating in room independently this shift. Pt having frequent BM's after Miralax given on day shift. Pt is alert and oriented X3. NPO after midnight. Call light within reach, frequent rounding.
[2016-05-24] MEDS ORDERED: Polyethylene Glycol (PEG) 17 Gm Powder PO SCH (08:30)
[2016-05-24] MEDS ORDERED: Lactated Ringer's 1,000 ML IV ONE ×2 (08:52→09:24)
--- NOTE | 2016-05-24 09:23 | PCM.HPANE ---
Patient Data Surgeon Admitting Provider:Dmitriy Crow MD Attending Provider:Dmitriy Crow MD Primary Care Physician:Megan Young PA-C Other Provider: Reason for Visit Dehydration,Obstipation,Hypokalemia Ht/WT & BMI Height (Feet): 5 Height (Inches): 0.00 Weight (Kilograms): 53.600 Body Mass Index 23.00 Allergies Coded Allergies: Oxycodone Terephthalate (Verified Allergy, Unknown, Hallucinations, ) ibuprofen (Verified Allergy, Unknown, Abdominal Pain, 05/22/16) morphine (Verified Allergy, Unknown, Hallucinations, 05/22/16) oxycodone HCl (Verified Allergy, Unknown, Hallucinations, 05/17/16) zolpidem tartrate (Verified Allergy, Unknown, hallucinations, 05/17/16) aspirin (Verified Adverse Reaction, Unknown, ulcers, 05/17/16) Past Anesthesia History Anesthesia History: Positive for:: Anesthesia Reactions (low bp), Denies:: Abnormal Airway, Difficult Intubation Diabetes History Hx Diabetes?: No MRSA MRSA: No Medications Hypertension Medication: No Home Meds Incl Beta Michaela: No Reported Medications Cholecalciferol (Vitamin D3) (Vitamin D)1,000 Unit Capsule2,000 Unit PO DAILY 05/22/16 Aspirin/Acetaminophen/Caffeine (Liuecvw-Nwaekzveabruh-Layh Tab)250 Mg-250 Mg-65 Mg Tablet2 Each PO DAILY PRN Headache 05/22/16 Multivitamin (Multivitamins)1 Each Capsule1 Each PO DAILY 05/22/16 Ondansetron ODT 4 Mg Tab.rapdis8 Mg PO BID PRN For Nausea 05/22/16 Sucralfate 1 Gm Tablet1 Gm PO QID 05/22/16 Omeprazole 40 Mg Capsule.dr40 Mg PO BID 05/22/16 Metoclopramide (Reglan)5 Mg Tablet5 Mg PO QID 05/22/16 Discontinued Reported Medications Tramadol-Expunged Drug, Do Not Renew! (Ultram-Expunged Drug, Do Not Renew!)50 Mg Tab50 Mg PO Q6HP #30 TAB 06/29/12 FLUTICASONE-Expunged Drug, Do Not Renew! (FLONASE-Expunged Drug, Do Not Renew!) 120 Sprays/16 Gm [id number] Sprays NA PRN 06/29/12 Clobetasol-Expunged Drug, Do Not Renew! (Temovate 0.05%-Expunged Drug, Do Not Renew!)15 Gm Tube1 Appl TOP PRN #15 GM APPLY TO AFFECTED AREA 06/29/12 Pantoprazole-Expunged Drug, Do Not Renew! (Protonix-Expunged Drug, Do Not Renew! )40 Mg Tablet.dr40 Mg PO BID #60 TAB 40 MG 06/29/12 Oxybutynin-Expunged Drug, Do Not Renew! 5 Mg Whiavj89 Mg PO HS 06/29/12 Discontinued Scripts MetoCLOpramide-Expunged Drug, Do Not Renew! 10 Mg Vgrere70 Mg PO TIDAC 30 Days Prov:ChanoJose Carlos nicolasfiorella Simpson DO 07/01/12 PEG 3350-Expunged Drug, Do Not Renew! (Miralax-Expunged Drug, Do Not Renew!)17 Gm/Pkt Wzuiog88 Gm PO DAILY 30 Days Prov:Christina Madden DO 07/01/12 Ondansetron (Zofran)4 Mg Tab.rapdis4 Mg PO Q6HP #30 DISSOLVE UNDER TONGUE Prov:ChanoChristina nicolas Tatiana DO 07/01/12 Senna-Expunged Drug, Do Not Renew! (Senokot-Expunged Drug, Do Not Renew!)8.6 Mg Tablet2 Ea PO BID PRN #60 Prov:Christina Madden DO 07/01/12 History History of ENT Problems?: No Hx of Heart Problems?: Yes Cardiovascular History: Denies:: AICD Congestive Heart Failure Hypertension Pacemaker Valvular Heart Disease Hx of Respiratory Problem?: No Respiratory History: Denies:: Asthma COPD Tuberculosis Use of C-PAP Machine Hx Neurologic Problems?: Yes Neurological History: Positive for:: Headaches Denies:: CVA Other Neurological Pertinent: fibromyalgia Hx of GI Problems?: Yes Gastrointestinal History: Positive for:: Gastroesphageal Reflux Gastrointestinal Bleeding (hx of bleeding upper GI ulcer) Heartburn Other GI Pertinent History: constipation hx gastric outlet obstruction multiple gastic sries, multiple gastric dilations Hx of Problems?: Yes Genitourinary History: Positive for:: Urinary Tract Infection Other Pertinent History: overractive bladder Female Hx: Denies:: Currently Endometriosis Pelvic Inflammatory Problems with Breasts? Skin History: Denies:: History Skin Disorders? Hx Musculoskeletal Problems?: Yes Musculoskeletal History: Positive for:: Systemic Lupus Hx of Psycho/Social Problems?: No Psycho Social History: Denies:: Anxiety Hx Depression Hx Surgeries?: Yes (8 stomach surgeries, 34 endoscopy dialations, appy, hystrectomy, DMITRIY) Hx Any Other Health Problems?: Yes Other History: Denies:: Cancer Thyroid Disease History Blood Transfusions: Positive for:: Accept Blood Products? Denies:: Blood Transfusions Hx Diabetes: No Hx Alcohol Use: NoHx Substance Use: No Smoking Status: Never Smoker Have You Smoked inLast 12 mo: No Stop/Bang Treated for Sleep Apnea?: No Do You Have a CPAP Machine?: No S-Snoring: Do You Snore Loudly: No T-Tired: feel tired, fatigued: Yes O-Obsered: Observed not breath: No P-Blood Pressure: treated: No B- Body Mass Index > 35 kg/m2: No A- Age over 50: Yes N- Neck Large Circumference: No G- Gender Male: No TY Total Score: 2 TY Risk Assessment: Low Risk, <3 Yes Risk Assessment Category Category 1A: Patient has history of documented sleep apnea, and HAS NOT received any narcotic, sedative or anesthesia administration during this stay. Category 1B: Patient has history of documented sleep apnea, and HAS received any narcotic , sedative or anesthesia administration during this stay Category 2: Patient has SUSPECTED Obstructive Sleep Apnea, and HAS received any narcotic , sedative or anesthesia administration during this stay. Category 3: Patient has SUSPECTED Obstructive Sleep Apnea and HAS NOT received narcotic, sedative or anesthesia administration during this stay. Category 4: Outpatient in Procedural Areas with known sleep apnea or who screen positive for High Risk via the STOP/BANG questionnaire. Exam Exam Vital Signs Vital Signs Date Time Temp Pulse Resp B/P Pulse Ox O2 Delivery O2 Flow Rate FiO2 05/24/16 08:43 67 16 133/110 99 Room Air 05/24/16 08:40 75 05/24/16 06:01 36.6 65 20 120/67 97 Room Air 05/24/16 05:25 73 General Appearance: Alert, Oriented X3, Cooperative, No Acute Distress HEENT/AIRWAY: MP 2 Lungs: Clear to Auscultation, Normal Air Movement Heart: Exam Unremarkable, Regular Rate/Rhythm, No Murmurs/Rubs/Gallops Meds/Labs/Diagnostics Admission Meds Current Medications Polyethylene Glycol 17 gm 17 gm OT ONCE PO Last administered on 05/23/16 15:27 ; Start 05/23/16 at 15:25; Stop 05/23/16 at 15:26; Status DC Potassium Chloride/Sodium Chloride 1,000 ml @ 75 mls/hr [id number] ONCE IV Last administered on 05/23/16 16:39; Start 05/23/16 at 15:30; Stop 05/24/16 at 04:49; Status DC Lactated Ringer's (Lr) 1,000 ml @ ud STK-MED ONCE IV Last administered on 08:52; Start 05/24/16 at 08:52; Stop 05/24/16 at 08:53; Status DC Labs Test 05/22/16 15:49 05/22/16 16:25 05/22/16 20:43 05/24/16 06:20 White Blood Count 9.1th/mm3 (3.8-10.1) Red Blood Count 4.64mil/mm3 (3.90-5.20) Hemoglobin 12.7g/dL (12.0-15.6) Hematocrit 38.7% (35.0-46.0) Mean Corpuscular Volume 83.4fL (81-100) Mean Corpuscular Hemoglobin 27.4pg (27.0-35.0) Mean Corpuscular Hemoglobin Concent 32.8% (32.0-37.0) Red Cell Distribution Width 13.8% (12.3-15.4) Platelet Count 261bil/L (150-400) Neutrophils (%) (Auto) 64.8% (40-74) Lymphocytes (%) (Auto) 21.8% (14-46) Monocytes (%) (Auto) 11.4% (4-12) Eosinophils (%) (Auto) 0.9% (0-5) Basophils (%) (Auto) 0.9% (0-3) Total Bilirubin 0.3mg/dL (0.0-1.2) Aspartate Amino Transf (AST/SGOT) 19U/L (0-50) Alanine Aminotransferase (ALT/SGPT) 11U/L (0-32) Alkaline Phosphatase 92U/L (25-165) Total Protein 7.6g/dL (6.4-8.4) Albumin 4.2g/dL (3.4-5.0) Hold Lemon Top Tube Received (Received) Urine Color Yellow (YELLOW) Urine Appearance Clear (CLEAR,HAZY) Urine pH 7.0 (5.0-8.0) Urine Specific [place] 1.010 (1.003-1.035) Urine Protein Negativemg/dL (NEG,TRACE) Urine Glucose (UA) Negativemg/dL (NEGATIVE) Urine Ketones >80mg/dL (NEGATIVE) Urine Occult Blood Negative (NEGATIVE) Urine Nitrite Negative (NEGATIVE) Urine Bilirubin Negative (NEGATIVE) Urine Urobilinogen Normalmg/dL (NORMAL) Urine Leukocyte Esterase Negative (NEGATIVE) Urine RBC 0-2/hpf (0-2) Urine WBC 0-5/hpf (0-5) Urine Epithelial Cells Moderate/hpf (NONE-MOD) Urine Crystals None seen (NONE SEEN) Urine Bacteria Few/hpf (NONE-FEW) Urine Hyaline Casts Occasional/lpf (NONE) Urine Granular Casts None seen (NONE SEEN) Urine Waxy Casts None seen (NONE SEEN) Urine Red Blood Cell Casts None seen (NONE SEEN) Urine White Blood Cell Casts None seen (NONE SEEN) Urine Mucus None seen (None Seen) Urine Trichomonas None seen (NONE SEEN) Urine Yeast None (NONE SEEN) Urinalysis Comment None Urine Culture Reflexed Not indicated Sodium Level 142mEq/L (134-144) Potassium Level 4.3mEq/L (3.5-5.2) Chloride Level 109mEq/L (97-108) Carbon Dioxide Level 20mmol/L (18-29) Blood Urea Nitrogen 6mg/dL (8-27) Creatinine 0.42mg/dL (0.57-1.00) Estimat Glomerular Filtration Rate 212mL/min (>59) Glucose Level 98mg/dL (60-99) Calcium Level 9.2mg/dL (8.5-10.1) Magnesium Level 2.0mg/dL (1.6-2.6) Plan Impression Patient chart reviewed, patient interviewed and anesthestic plan with risks, benefits, and alternatives discussed, and informed consent obtained. ASA Physical Status: ASA2 Mod Systemic Disease Anesthetic Plan: MAC Bene/Risks/Altern/Consents: Yes HP Complete Prior to Induction: Yes Jacob Pagan MD May 24, 2016 09:23
[2016-05-24] MEDS ORDERED: Lactated Ringer's 1,000 ML IV SCH (09:24)
[2016-05-24] MEDS ORDERED: Ondansetron 2 mg/mL 2 mL Inj IVPUSH PRN (09:25)
[2016-05-24] MEDS ORDERED: MetoCLOpramide 5 mg/mL 2 mL Inj IVPUSH PRN (09:25)
--- NOTE | 2016-05-24 10:49 | PCM.DIMED ---
Discharge Instructions Date of Service May 24, 2016 Dates of Hospitalization May 22, 2016 at 20:28 Discharge Diagnosis Discharge Diagnosis 1. Persistent nausea and vomiting due to Gastric outlet obstruction. Present on admission. Resolved. - post Esophagogastroduodenoscopy (EGD) and dilation procedure on 05/24/16 2. Acute fecal impaction. Present on admission. Resolved. 3. Hematemesis. Present on admission. Resolved No active bleeding at this time 4. Acute Hypokalemia. Present on admission. Resolved. 5. Acute hyponatremia and hypochloremia. present on admission. Resolved with IV fluid. Diet No restrictions Activity No restrictions Call your provider Fever or Chills, Shortness of breath, Bleeding, Chest pain, Vomitting, Excessive diarrhea Patient Instructions Seek immediate medical attention if any new or worsening signs or symptoms occur. Follow-up plan 1. Followup with gastroeneterology (Dr. Bush) next week as already scheduled. 2. Followup with primary care provider in 1-2 weeks as needed. Follow-up Provider: Manuel Bush MD Follow-up with PCP in: 1 week Provider: Megan Young PA-C, [place] May 24, 2016 10:49
--- NOTE | 2016-05-24 11:28 | NUR ---
Discharge Patient given discharge orders. Patient IV removed fully intact and asymptomatic. Patient given medication list and explained when next dose is due. Patient given informational packet. Patient given follow up information. Patient daughter called and waiting for her arrival for transportation upon discharge.
--- NOTE | 2016-05-24 11:31 | PCM.ANEP1 ---
Post Anesthesia Phase 1 PACU Phase 1 Assessment Vital Signs Vital Signs Date Time Temp Pulse Resp B/P Pulse Ox O2 Delivery O2 Flow Rate FiO2 05/24/16 11:18 36.6 70 20 126/73 100 Room Air 05/24/16 09:56 77 16 143/75 100 Nasal Cannula 4 05/24/16 09:44 66 16 134/68 100 Nasal Cannula 4 05/24/16 08:43 67 16 133/110 99 Room Air 05/24/16 08:40 75 05/24/16 06:01 36.6 65 20 120/67 97 Room Air 05/24/16 05:25 73 Anesthetic Administered: MAC Level of Alertness: Awake, talking LAZARO's with Equal Strength: Yes Pain: No Nausea or Vomiting: No Oxygen Delivery: Nasal Cannula Lungs: Clear to Auscultation, Normal Air Movement Dermatome Level: Full Sensation Jacob Pagan MD May 24, 2016 11:31
--- NOTE | 2016-05-24 11:32 | PCM.ANEP2 ---
Post Anesthesia Evaluation ASA/CMS Post Anesthesia VS in Patient's Normal Range?: Yes Resp Stable; Airway Patent?: Yes CV Function & Hydration Stable: Yes Mental Status Recovered?: Yes Pain control Satisfactory?: Yes N/V Control Satisfactory?: Yes Jacob Pagan MD May 24, 2016 11:32
[2016-05-24] MEDS ORDERED: Ketamine 10 mg/mL 20 mL Inj ONE (13:04)
--- NOTE | 2016-05-24 15:46 | PCM.DC.MED ---
Discharge Summary Date of Service May 24, 2016 Dates of Hospitalization Date of Hospital Admission May 22, 2016 at 20:28 Date of Discharge: May 24, 2016 Providers: Admitting Physician: Dmitriy Crow MD Primary Care Physician: Megan Young PA-C Attending Physician: Dmitriy Crow MD Diagnosis at Time of Discharge Diagnosis at Time of Discharge 1. Persistent nausea and vomiting due to Gastric outlet obstruction. Present on admission. Resolved. - post Esophagogastroduodenoscopy (EGD) and dilation procedure on 05/24/16 2. Acute fecal impaction. Present on admission. Resolved. 3. Hematemesis. Present on admission. Resolved No active bleeding at this time 4. Acute Hypokalemia. Present on admission. Resolved. 5. Acute hyponatremia and hypochloremia. present on admission. Resolved with IV fluid. Consultations 1. GI (Dr. Bush) Procedures Invasive Procedures 1. EGD with gastric outlet dilatation Brief History As noted in H&P by Dr. 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 She was supposed to receive an endoscopy procedure today but the impaction was noticed on an abdominal CT from her last ER visit (05/17/16). The patient currently reports left-sided abdominal pain, constipation (last BM 04/30/16) she attributes this to being dehydrated since she cannot keep fluids down Patient has been complaining of hematemesis/nausea/vomiting. He states that symptoms started 3 months ago and have progressively worsened. She cannot eat, nor can she keep fluids down--has vomited red blood, as well as, coffee-grounds. She denies dysuria, chest pain, shortness of breath, or other symptoms. She is requesting a dilatation procedure today--she believes this is the source of her problem She does report using cannabis oil for her chronic pain issues. Not currently on any narcotics Case discussed with Dr Anderson, due to persistent nausea and vomiting, patient will be admitted to receive enema in an effort to clear her fecal impaction Hospital Course 1. Persistent nausea and vomiting due to Gastric outlet obstruction. Present on admission. resolved Patient reports having to have dilation procedure at least 30 times. - appreciate GI consult. will f/u w/ recs - post Esophagogastroduodenoscopy (EGD) and dilation procedure on 05/24/16 - tolerating full liquid diet by time of d/c 2. Acute fecal impaction. Present on admission. resolved 3. Hematemesis. Present on admission. 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 No active bleeding at this time - continue PPI 4. Hypokalemia. Present on admission. Resolved. 5. Acute hyponatremia and hypochloremia. poa. - resolved with IVF by day of d/c lungs CTA bilat. Abdomen soft, nt, nd, +bs Exam Vital Signs (Last) Date Time Temp Pulse Resp B/P Pulse Ox O2 Delivery O2 Flow Rate FiO2 05/24/16 11:31 Nasal Cannula 05/24/16 11:18 36.6 70 20 126/73 100 05/24/16 09:56 4 Test 05/22/16 15:49 05/22/16 16:25 05/22/16 20:43 05/24/16 06:20 White Blood Count 9.1th/mm3 (3.8-10.1) Red Blood Count 4.64mil/mm3 (3.90-5.20) Hemoglobin 12.7g/dL (12.0-15.6) Hematocrit 38.7% (35.0-46.0) Mean Corpuscular Volume 83.4fL (81-100) Mean Corpuscular Hemoglobin 27.4pg (27.0-35.0) Mean Corpuscular Hemoglobin Concent 32.8% (32.0-37.0) Red Cell Distribution Width 13.8% (12.3-15.4) Platelet Count 261bil/L (150-400) Neutrophils (%) (Auto) 64.8% (40-74) Lymphocytes (%) (Auto) 21.8% (14-46) Monocytes (%) (Auto) 11.4% (4-12) Eosinophils (%) (Auto) 0.9% (0-5) Basophils (%) (Auto) 0.9% (0-3) Total Bilirubin 0.3mg/dL (0.0-1.2) Aspartate Amino Transf (AST/SGOT) 19U/L (0-50) Alanine Aminotransferase (ALT/SGPT) 11U/L (0-32) Alkaline Phosphatase 92U/L (25-165) Total Protein 7.6g/dL (6.4-8.4) Albumin 4.2g/dL (3.4-5.0) Hold Lemon Top Tube Received (Received) Urine Color Yellow (YELLOW) Urine Appearance Clear (CLEAR,HAZY) Urine pH 7.0 (5.0-8.0) Urine Specific [place] 1.010 (1.003-1.035) Urine Protein Negativemg/dL (NEG,TRACE) Urine Glucose (UA) Negativemg/dL (NEGATIVE) Urine Ketones >80mg/dL (NEGATIVE) Urine Occult Blood Negative (NEGATIVE) Urine Nitrite Negative (NEGATIVE) Urine Bilirubin Negative (NEGATIVE) Urine Urobilinogen Normalmg/dL (NORMAL) Urine Leukocyte Esterase Negative (NEGATIVE) Urine RBC 0-2/hpf (0-2) Urine WBC 0-5/hpf (0-5) Urine Epithelial Cells Moderate/hpf (NONE-MOD) Urine Crystals None seen (NONE SEEN) Urine Bacteria Few/hpf (NONE-FEW) Urine Hyaline Casts Occasional/lpf (NONE) Urine Granular Casts None seen (NONE SEEN) Urine Waxy Casts None seen (NONE SEEN) Urine Red Blood Cell Casts None seen (NONE SEEN) Urine White Blood Cell Casts None seen (NONE SEEN) Urine Mucus None seen (None Seen) Urine Trichomonas None seen (NONE SEEN) Urine Yeast None (NONE SEEN) Urinalysis Comment None Urine Culture Reflexed Not indicated Sodium Level 142mEq/L (134-144) Potassium Level 4.3mEq/L (3.5-5.2) Chloride Level 109mEq/L (97-108) Carbon Dioxide Level 20mmol/L (18-29) Blood Urea Nitrogen 6mg/dL (8-27) Creatinine 0.42mg/dL (0.57-1.00) Estimat Glomerular Filtration Rate 212mL/min (>59) Glucose Level 98mg/dL (60-99) Calcium Level 9.2mg/dL (8.5-10.1) Magnesium Level 2.0mg/dL (1.6-2.6) Discharge Medications Discharge Medications Cholecalciferol (Vitamin D3) (Vitamin D) 1,000 Unit Capsule 2,000 UNIT PO DAILY (Reported) Metoclopramide (Reglan) 5 Mg Tablet 5 MG PO QID (Reported) Multivitamin (Multivitamins) 1 Each Capsule 1 EACH PO DAILY (Reported) Omeprazole (Omeprazole) 40 Mg Capsule.dr 40 MG PO BID (Reported) Sucralfate (Sucralfate) 1 Gm Tablet 1 GM PO QID (Reported) As needed Ondansetron ODT (Ondansetron ODT) 4 Mg Tab.rapdis 8 MG PO BID PRN PRN For Nausea (Reported) Followup Plan Disposition: Home Follow-up plan 1. Followup with gastroeneterology (Dr. Bush) next week as already scheduled. 2. Followup with primary care provider in 1-2 weeks as needed. Discharge Diet: No restrictions Discharge Activity: No restrictions Patient Instructions Seek immediate medical attention if any new or worsening signs or symptoms occur. Follow-up Provider: Manuel Bush MD Follow-up with PCP in: 1 week Provider: Megan Young PA-C Time spent 30 min copies to: Megan Young PA-C; Manuel Bush MD, [place] May 24, 2016 15:46
--- NOTE | 2016-05-24 18:19 | ENDO ---
[address] [address] ENDOSCOPY PROCEDURE PATIENT: ABDULKADIR WHITE : 1945 MR#: [id number] ADMIT: 05/22/2016 JOB ID: [id number] PROCEDURE: Esophagogastroscopy with balloon dilatation. INDICATIONS: This is a 70-year-old female with a history of gastric outlet obstruction requiring numerous dilatations and surgical revisions. She was admitted for nausea, vomiting and found to be profoundly constipated. Bowels are moving and repeat endoscopy is pursued today to evaluate for recurrence of gastric outlet obstruction. EQUIPMENT: [id number]. SEDATION: Monitored anesthesia as provided by Dr. Jacob Pagan. COMPLICATIONS: None identified. PROCEDURE INFORMATION: After the risks and benefits were explained, written and verbal informed consent was obtained, the patient was brought into the endoscopy suite and placed into the left lateral decubitus position. Sedation was achieved using the above-stated medications with the addition of oxygen via nasal cannula. The scope was introduced into the mouth through the bite block, and advanced under direct visualization to the stomach. The stomach had a moderate amount of retained fibrous and liquid debris. The liquid debris was ultimately removed. We could not aspirate many of the retained fully formed beans and chunks of carrot. After we cleaned out the stomach we performed serial balloon dilatation of the anastomosis. I still could not get the scope to navigate through. However, we obviously had a moderate dilatation effect and did not elect to go up any higher in terms of our dilators today. The stomach was decompressed. The scope then removed from the patient who tolerated the procedure well. FINDINGS: 1. Esophagus: The patient had GE junction at about 37 cm from the incisors. There was evidence of acute erosive esophagitis, LA grade B, at least. 2. Stomach: Retained food debris. Moderate to large volume. This was for the most part removed. After our dilatation we used a snare to chop up the majority of the large debris remaining so that it could potentially get through the anastomosis. We used a 6-7-8 CRE balloon and positioned it across the stenosed anastomosis. This was done over the wire which easily passed well downstream without any resistance. After the 6-7-8 balloon, we swapped out for 8-9-10 and continued dilatation up to 10 mm. There was some mild but not continuous heme, consistent with the dilatation effect. I still could not get the scope to advance through the anastomosis but clearly we had improved the size of the opening. I estimated this to be down to perhaps 2 mm at the outset of the procedure. ENDOSCOPIC DIAGNOSES: 1. Gastroduodenoscopy anastomotic stenosis status post balloon dilatation up to 10 mm. 2. Erosive esophagitis. RECOMMENDATIONS: 1. Avoid NSAIDs. 2. Continue twice daily proton pump inhibitor. 3. Smoothie consistency diet only for now. 4. Continue MiraLAX daily and a ground flaxseed fiber supplementation as an outpatient. 5. Repeat EGD with anesthesia and fluoroscopy in approximately one week. 6. At some point, we will need to pursue colonoscopy as well since her last exam was in 1991. However, I think we will plan this after we perform at least one further balloon dilatation to ideally make it a little easier to tolerate the bowel prep. 7. From a GI standpoint, patient can be discharged home at the discretion of the primary team today.
[2016-06-01] MEDS ORDERED: excedrin PO (12:47)
[2016-06-01] MEDS ORDERED: MULT-666 PO (12:47)
[2016-06-30] MEDS ORDERED: SUCR1TAB PO (13:19)
== END 2016-05-24 13:05 | disposition home or self-care (01) ==
LOC: SED 13:32 → MPC 20:28
PROVIDERS: ADMIT Hospitalist; ATTEND Hospitalist
DX: K31.1 Adult hypertrophic pyloric stenosis (principal); R11.2 Nausea with vomiting, unspecified; K22.10 Ulcer of esophagus without bleeding; K56.41 Fecal impaction; K92.0 Hematemesis; E87.6 Hypokalemia; E87.8 Other disorders of electrolyte and fluid balance, not elsewhere classified; E87.1 Hypo-osmolality and hyponatremia; E86.0 Dehydration; M32.9 Systemic lupus erythematosus, unspecified; K27.4 Chronic or unspecified peptic ulcer, site unspecified, with hemorrhage; K63.89 Other specified diseases of intestine; N32.81 Overactive bladder; M79.7 Fibromyalgia; K21.9 Gastro-esophageal reflux disease without esophagitis; F12.90 Cannabis use, unspecified, uncomplicated; Z88.8 Allergy status to other drugs, medicaments and biological substances; Z88.6 Allergy status to analgesic agent; Z98.84 Bariatric surgery status; Z90.710 Acquired absence of both cervix and uterus
CPT/HCPCS: 36415; 43245; 80048; 80053; 81000; 83735; 85025; 96361; 96374; 96375; 99285; G0378; J2405; J7030; J7120

== ENCOUNTER 2016-06-02 13:48 | Day surgery (SDC) | payer MEDICARE ==
[~2016-06-02] VITALS: Ht 152.4 cm; Wt 53.5 kg
[~2016-06-02 13:48] MED LIST changes: +CHOL100045 PO; -CLOB15OI TOP; -DIT5 PO; -FLONASE; +METO5TAB78 PO; +MULT-666 PO; +MULT1CAP33 PO; +OMEP40CA36 PO; +ONDA4TAB12 PO; -ONDA4TAB48 PO; -POLY1PAC PO; -PROT40T PO; -REG10 PO; -SEN PO; +SUCR1TAB PO; -ULTRAM50 MG PO; +excedrin PO
[2016-06-02] MEDS ORDERED: fentaNYL-PF 50 mCg/mL 2 mL Inj ONE (13:49)
[2016-06-02] MEDS ORDERED: Ondansetron 2 mg/mL 2 mL Inj ONE (13:49)
[2016-06-02] MEDS ORDERED: Propofol 10,000 mCg/mL 20 mL Inj ONE (13:49)
[2016-06-02] MEDS ORDERED: Lidocaine PF 1% 30 mL Inj ONE (13:49)
[2016-06-02] MEDS ORDERED: CANNABIS OIL PO (14:18)
[2016-06-02] MEDS ORDERED: OMEP20TA24 PO (14:18)
[2016-06-02] MEDS ORDERED: POTA99TA7 PO (14:18)
[2016-06-02 14:25] VITALS: BP 132/78; PULSE 83; RESP 12; O2SAT 98
[2016-06-02] MEDS: Lactated Ringer's 1,000 ML IV ONE ×3 (15:29→16:31)
--- NOTE | 2016-06-02 15:32 | PCM.HPANE ---
Patient Data Date of Service: Jun 02, 2016 Surgeon Admitting Provider: Attending Provider:Manuel Bush MD Primary Care Physician:Megan Young PA-C Other Provider:King Nino Anesthesia Reason for Visit Gastric Anastomosis Stricture Ht/WT & BMI Height (Feet): 5 Height (Inches): 0 Weight (Kilograms): 53.52 Body Mass Index 23.00 Allergies Coded Allergies: Oxycodone Terephthalate (Verified Allergy, Unknown, Hallucinations, ) ibuprofen (Verified Allergy, Unknown, Abdominal Pain, 06/01/16) morphine (Verified Allergy, Unknown, Hallucinations, 06/01/16) oxycodone HCl (Verified Allergy, Unknown, Hallucinations, 06/01/16) zolpidem tartrate (Verified Allergy, Unknown, hallucinations, 06/01/16) aspirin (Verified Adverse Reaction, Unknown, ulcers, 06/01/16) Past Anesthesia History Anesthesia History: Denies:: Abnormal Airway, Anesthesia Reactions, Difficult Intubation, Fam Anesthesia Reaction, Fam Malignant Hypertherm, Malignant Hyperthermia Diabetes History Hx Diabetes?: No MRSA MRSA: No Medications Home Meds Incl Beta Michaela: No Reported Medications Omeprazole Magnesium (Prilosec Otc)20 Mg Tablet.dr20 Mg PO DAILY #1 PKG Ref 0 06/02/16 [Cannabis Oil] No Conflict Check1 Mg PO DAILY 06/02/16 Potassium 99 Mg Byspoa05 Mg PO DAILY 06/02/16 Multivitamin (Once Daily)1 Each Tablet1 Each PO DAILY 06/01/16 [excedrin] No Conflict Check PO DIRECTED PRN For Pain 06/01/16 Cholecalciferol (Vitamin D3) (Vitamin D)1,000 Unit Capsule2,000 Unit PO DAILY 05/22/16 Multivitamin (Multivitamins)1 Each Capsule1 Each PO DAILY 05/22/16 Ondansetron ODT 4 Mg Tab.rapdis8 Mg PO BID PRN For Nausea 05/22/16 Sucralfate 1 Gm Tablet1 Gm PO QID 05/22/16 Metoclopramide (Reglan)5 Mg Tablet5 Mg PO QID 05/22/16 Discontinued Reported Medications Omeprazole 40 Mg Capsule.dr40 Mg PO BID 05/22/16 History History of ENT Problems?: No HEENT History: Denies:: Abnormal Airway Difficult Intubation Dysphagia Hearing Problem Hx of Heart Problems?: Yes Cardiovascular History: Positive for:: Chest Pain (1998) Denies:: AICD Atrial Fibrillation Congestive Heart Failure Hypertension Pacemaker Valvular Heart Disease Hx of Respiratory Problem?: No Respiratory History: Denies:: Asthma COPD Tuberculosis Use of C-PAP Machine Hx Neurologic Problems?: Yes Neurological History: Positive for:: Headaches Denies:: CVA Hx of GI Problems?: Yes Gastrointestinal History: Positive for:: Gall Bladder Disease (REMOVED) Gastroesphageal Reflux Gastrointestinal Bleeding (hx of bleeding upper GI ulcer) Heartburn Rectal Bleeding Denies:: Cirrhosis Diverticulitis Hiatal Hernia Liver Disease Hx of Problems?: Yes Genitourinary History: Positive for:: Urinary Tract Infection Female Hx: Denies:: Currently Endometriosis Pelvic Inflammatory Problems with Breasts? Skin History: Denies:: History Skin Disorders? Hx Musculoskeletal Problems?: Yes Musculoskeletal History: Positive for:: Fibromyalgia Systemic Lupus Denies:: Joint Replacement Hx of Psycho/Social Problems?: No Psycho Social History: Positive for:: Anxiety Hx Depression Hx Surgeries?: Yes (GASTRIC X8, LAP DMITRIY, PARATENITIS, L ARM PLATE) Hx Any Other Health Problems?: Yes Other History: Denies:: Cancer Thyroid Disease History Blood Transfusions: Denies:: Blood Transfusions Hx Diabetes: No Hx Alcohol Use: NoHx Substance Use: No Smoking Status: Never Smoker Have You Smoked inLast 12 mo: No Stop/Bang Treated for Sleep Apnea?: No Do You Have a CPAP Machine?: No S-Snoring: Do You Snore Loudly: No T-Tired: feel tired, fatigued: No O-Obsered: Observed not breath: No P-Blood Pressure: treated: No B- Body Mass Index > 35 kg/m2: No A- Age over 50: Yes N- Neck Large Circumference: No G- Gender Male: No TY Total Score: 1 TY Risk Assessment: Low Risk, <3 Yes Risk Assessment Category Category 1A: Patient has history of documented sleep apnea, and HAS NOT received any narcotic, sedative or anesthesia administration during this stay. Category 1B: Patient has history of documented sleep apnea, and HAS received any narcotic , sedative or anesthesia administration during this stay Category 2: Patient has SUSPECTED Obstructive Sleep Apnea, and HAS received any narcotic , sedative or anesthesia administration during this stay. Category 3: Patient has SUSPECTED Obstructive Sleep Apnea and HAS NOT received narcotic, sedative or anesthesia administration during this stay. Category 4: Outpatient in Procedural Areas with known sleep apnea or who screen positive for High Risk via the STOP/BANG questionnaire. Exam Exam Vital Signs Vital Signs Date Time Temp Pulse Resp B/P Pulse Ox O2 Delivery O2 Flow Rate FiO2 06/02/16 14:25 37.6 83 12 132/78 98 Room Air General Appearance: Alert, Oriented X3, Cooperative HEENT/AIRWAY: MP 2, Neck Movement (fULL), Mouth Opening (wIDE) Lungs: Clear to Auscultation, Normal Air Movement Heart: Regular Rate/Rhythm, Normal S1, Normal S2 Meds/Labs/Diagnostics Admission Meds Current Medications Lactated Ringer's (Lr) 1,000 ml @ 10 mls/hr Q24H ONCE IV Last administered on 06/02/16t 15:29; Start 06/02/16 at 07:16; Stop 06/03/16 at 07:15 Plan Impression Patient chart reviewed, patient interviewed and anesthestic plan with risks, benefits, and alternatives discussed, and informed consent obtained. NPO Status: > 8 HOURS ASA Physical Status: ASA2 Mod Systemic Disease Anesthetic Plan: MAC Bene/Risks/Altern/Consents: Yes HP Complete Prior to Induction: Yes Travis Tate MD Jun 02, 2016 15:31
[2016-06-02] MEDS ORDERED: Lactated Ringer's 1,000 ML IV SCH (15:34)
[2016-06-02] MEDS ORDERED: MetoCLOpramide 5 mg/mL 2 mL Inj IVPUSH PRN (15:35)
[2016-06-02] MEDS ORDERED: Ondansetron 2 mg/mL 2 mL Inj IVPUSH PRN (15:35)
[2016-06-02 16:36] VITALS: BP 177/80; PULSE 98; RESP 16; O2SAT 92
--- NOTE | 2016-06-02 16:38 | PCM.ANEP1 ---
Post Anesthesia Phase 1 PACU Phase 1 Assessment Date of Service: Jun 02, 2016 Vital Signs Vital Signs Date Time Temp Pulse Resp B/P Pulse Ox O2 Delivery O2 Flow Rate FiO2 06/02/16 16:36 36.8 98 16 177/80 92 Room Air 06/02/16 14:25 37.6 83 12 132/78 98 Room Air Anesthetic Administered: MAC Level of Alertness: Sleepy, easy to arouse LAZARO's with Equal Strength: Yes Pain: No Nausea or Vomiting: Yes Oxygen Delivery: Room Air Lungs: Normal Air Movement Travis Tate MD Jun 02, 2016 16:38
[2016-06-02 16:46] VITALS: BP 164/86; PULSE 97; RESP 16; O2SAT 96
--- NOTE | 2016-06-02 16:49 | PCM.ANEP2 ---
Post Anesthesia Evaluation ASA/CMS Post Anesthesia Date of Service: Jun 02, 2016 VS in Patient's Normal Range?: Yes Resp Stable; Airway Patent?: Yes CV Function & Hydration Stable: Yes Mental Status Recovered?: Yes Pain control Satisfactory?: Yes N/V Control Satisfactory?: Yes Travis Tate MD Jun 02, 2016 16:48
[2016-06-02 16:55] VITALS: BP 161/79; PULSE 89; RESP 16; O2SAT 96
--- NOTE | 2016-06-03 00:22 | ENDO ---
[address] [address] ENDOSCOPY PROCEDURE PATIENT: ABDULKADIR WHITE : 1945 MR#: [id number] ADMIT: 06/02/2016 JOB ID: [id number] DATE OF PROCEDURE: 06/02/2016 PRIMARY PROVIDER: Megan Young PA-C. PROCEDURE: Esophagogastroduodenoscopy with balloon dilatation under fluoroscopy. INDICATIONS: A 70-year-old female with multiple revisions of Billroth II anastomosis. Last exam last week she demonstrated considerable stenosis. EQUIPMENT: GIF-[id number]. SEDATION: Monitored anesthesia as provided by Dr. Travis Tate. COMPLICATIONS: None identified. PROCEDURE INFORMATION: After the risks and benefits were explained, written and verbal informed consent was obtained. The patient was brought into the endoscopy suite and placed into the left lateral decubitus position using the fluoro table. The scope was introduced into the mouth through the bite block and advanced under direct visualization to stomach. We encountered a large amount of mushy food debris within the stomach, more than the last time the patient was examined. We spent a considerable effort removing this using the [employer] system. Approximately 1.3 L was removed. We were then able to identify the very stenotic anastomosis. I could not advance the scope through this. It was difficult to place the wire distally downstream. Eventually, we were able to do so and I then advanced a 10-12 mm CRE balloon across the stenosis and sequentially dilated up to 12 mm. After that, I was able to, with some mild pressure exerted at the anastomosis, get the endoscope to go through. It looked like the patient had an extremely short afferent limb. We were then able to advance well down the efferent which appeared normal. The scope was withdrawn. Excess air removed from the stomach. The scope was then removed from the patient who tolerated the procedure well. FINDINGS: 1. Esophagus: The patient again had evidence of LA grade B erosive esophagitis and a small sliding hiatal hernia. 2. Retained gastric debris consistent with gastric outlet obstruction. 3. Anastomotic stenosis status post balloon dilatation under fluoroscopy to 12 mm. There was a small amount of nonsustained bleeding from the anastomosis following the dilatation. Nothing that required an intervention. 4. Duodenum: Short afferent limb, normal appearing efferent. ENDOSCOPIC DIAGNOSES: 1. Gastric outlet obstruction. 2. 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 3. Erosive esophagitis. RECOMMENDATIONS: 1. Continue b.i.d. proton pump inhibitor. 2. Continue smoothie diet. 3. Continue to avoid nonsteroidal anti-inflammatory drugs. 4. Repeat esophagogastroduodenoscopy with dilatation under fluoroscopy, 45 minute slot, in one weeks' time. Based on the appearance of the stomach today I would recommend the patient be considered for endotracheal intubation for better airway protection during the case.
[2016-06-30] MEDS ORDERED: SUCR1TAB PO (13:19)
== END 2016-06-02 23:59 | disposition home or self-care (01) ==
LOC: END 13:48
PROVIDERS: ATTEND Internal Medicine Gastroenterology
DX: K22.10 Ulcer of esophagus without bleeding (principal); K44.9 Diaphragmatic hernia without obstruction or gangrene; K31.1 Adult hypertrophic pyloric stenosis; K22.2 Esophageal obstruction; K92.0 Hematemesis; M79.7 Fibromyalgia; K21.0 Gastro-esophageal reflux disease with esophagitis; M32.9 Systemic lupus erythematosus, unspecified; K59.00 Constipation, unspecified; F41.9 Anxiety disorder, unspecified; F32.9 Major depressive disorder, single episode, unspecified; Z98.84 Bariatric surgery status

== ENCOUNTER 2016-06-10 13:05 | Day surgery (SDC) | payer MEDICARE ==
[~2016-06-10] VITALS: Ht 152.4 cm; Wt 54.0 kg
--- NOTE | 2016-06-10 07:42 | PCM.HPANE ---
Patient Data Surgeon Admitting Provider: Attending Provider:Manuel Bush MD Primary Care Physician:Megan Young PA-C Other Provider:King Nino Anesthesia Reason for Visit Gastric Outlet Obstruction Ht/WT & BMI Body Mass Index Allergies Coded Allergies: Oxycodone Terephthalate (Verified Allergy, Unknown, Hallucinations, ) ibuprofen (Verified Allergy, Unknown, Abdominal Pain, 06/01/16) morphine (Verified Allergy, Unknown, Hallucinations, 06/01/16) oxycodone HCl (Verified Allergy, Unknown, Hallucinations, 06/01/16) zolpidem tartrate (Verified Allergy, Unknown, hallucinations, 06/01/16) aspirin (Verified Adverse Reaction, Unknown, ulcers, 06/01/16) Past Anesthesia History Anesthesia History: Denies:: Abnormal Airway, Anesthesia Reactions, Difficult Intubation, Fam Anesthesia Reaction, Fam Malignant Hypertherm, Malignant Hyperthermia Diabetes History Hx Diabetes?: No MRSA MRSA: No Medications Hypertension Medication: No Home Meds Incl Beta Michaela: No Reported Medications Omeprazole Magnesium (Prilosec Otc)20 Mg Tablet.dr20 Mg PO DAILY #1 PKG Ref 0 06/02/16 [Cannabis Oil] No Conflict Check1 Mg PO DAILY 06/02/16 Potassium 99 Mg Uczfet71 Mg PO DAILY 06/02/16 Multivitamin (Once Daily)1 Each Tablet1 Each PO DAILY 06/01/16 [excedrin] No Conflict Check PO DIRECTED PRN For Pain 06/01/16 Cholecalciferol (Vitamin D3) (Vitamin D)1,000 Unit Capsule2,000 Unit PO DAILY 05/22/16 Multivitamin (Multivitamins)1 Each Capsule1 Each PO DAILY 05/22/16 Ondansetron ODT 4 Mg Tab.rapdis8 Mg PO BID PRN For Nausea 05/22/16 Sucralfate 1 Gm Tablet1 Gm PO QID 05/22/16 Metoclopramide (Reglan)5 Mg Tablet5 Mg PO QID 05/22/16 History History of ENT Problems?: No HEENT History: Denies:: Abnormal Airway Difficult Intubation Dysphagia Hearing Problem Denture Type: None Teeth Condition: Within Normal Limits Hx of Heart Problems?: Yes Cardiovascular History: Positive for:: Chest Pain (1998) Denies:: AICD Atrial Fibrillation Congestive Heart Failure Hypertension Pacemaker Valvular Heart Disease Hx of Respiratory Problem?: No Respiratory History: Denies:: Asthma COPD Tuberculosis Use of C-PAP Machine Hx Neurologic Problems?: Yes Neurological History: Positive for:: Headaches Denies:: CVA Hx of GI Problems?: Yes Gastrointestinal History: Positive for:: Gastroesphageal Reflux Gastrointestinal Bleeding (hx of bleeding upper GI ulcer) Heartburn Rectal Bleeding Denies:: Cirrhosis Diverticulitis Hiatal Hernia Hx of Problems?: Yes Genitourinary History: Positive for:: Urinary Tract Infection Female Hx: Denies:: Currently Endometriosis Pelvic Inflammatory Problems with Breasts? Skin History: Denies:: History Skin Disorders? Hx Musculoskeletal Problems?: Yes Musculoskeletal History: Positive for:: Systemic Lupus Denies:: Joint Replacement Hx of Psycho/Social Problems?: No Psycho Social History: Positive for:: Anxiety Hx Depression Hx Surgeries?: Yes (GASTRIC X8, LAP DMITRIY, PARATENITIS, L ARM PLATE) Hx Any Other Health Problems?: Yes Other History: Denies:: Cancer Thyroid Disease History Blood Transfusions: Denies:: Blood Transfusions Hx Diabetes: No Hx Alcohol Use: NoHx Substance Use: No Smoking Status: Never Smoker Have You Smoked inLast 12 mo: No Stop/Bang Treated for Sleep Apnea?: No Do You Have a CPAP Machine?: No Risk Assessment Category Category 1A: Patient has history of documented sleep apnea, and HAS NOT received any narcotic, sedative or anesthesia administration during this stay. Category 1B: Patient has history of documented sleep apnea, and HAS received any narcotic , sedative or anesthesia administration during this stay Category 2: Patient has SUSPECTED Obstructive Sleep Apnea, and HAS received any narcotic , sedative or anesthesia administration during this stay. Category 3: Patient has SUSPECTED Obstructive Sleep Apnea and HAS NOT received narcotic, sedative or anesthesia administration during this stay. Category 4: Outpatient in Procedural Areas with known sleep apnea or who screen positive for High Risk via the STOP/BANG questionnaire. Exam Exam General Appearance: Alert, Oriented X3, Cooperative, No Acute Distress HEENT/AIRWAY: MP 2 Lungs: Clear to Auscultation, Normal Air Movement Heart: Exam Unremarkable, Regular Rate/Rhythm, No Murmurs/Rubs/Gallops Plan Impression Patient chart reviewed, patient interviewed and anesthestic plan with risks, benefits, and alternatives discussed, and informed consent obtained. ASA Physical Status: ASA2 Mod Systemic Disease Anesthetic Plan: MAC Bene/Risks/Altern/Consents: Yes HP Complete Prior to Induction: Yes Jacob Pagan MD Jun 10, 2016 07:42
[~2016-06-10 13:05] MED LIST changes: +CANNABIS OIL PO; +Lactated Ringer's 1,000 ML IV ONE; +OMEP20TA24 PO; -OMEP40CA36 PO; +POTA99TA7 PO
[2016-06-10 13:34] VITALS: BP 142/69; PULSE 62; RESP 16; O2SAT 98
[2016-06-10] MEDS ORDERED: Lactated Ringer's 1,000 ML IV ONE (14:54)
[2016-06-10] MEDS ORDERED: Lactated Ringer's 1,000 ML IV SCH (14:54)
--- NOTE | 2016-06-10 14:54 | PCM.HPANE ---
Patient Data Surgeon Admitting Provider: Attending Provider:Manuel Bush MD Primary Care Physician:Megan Young PA-C Other Provider:King Nino Anesthesia Reason for Visit Gastric Outlet Obstruction Ht/WT & BMI Height (Feet): 5 Height (Inches): 0 Weight (Kilograms): 54 Body Mass Index 23.00 Allergies Coded Allergies: Oxycodone Terephthalate (Verified Allergy, Unknown, Hallucinations, ) ibuprofen (Verified Allergy, Unknown, Abdominal Pain, 06/01/16) morphine (Verified Allergy, Unknown, Hallucinations, 06/01/16) oxycodone HCl (Verified Allergy, Unknown, Hallucinations, 06/01/16) zolpidem tartrate (Verified Allergy, Unknown, hallucinations, 06/01/16) aspirin (Verified Adverse Reaction, Unknown, ulcers, 06/01/16) Past Anesthesia History Anesthesia History: Denies:: Abnormal Airway, Anesthesia Reactions, Difficult Intubation, Fam Anesthesia Reaction, Fam Malignant Hypertherm, Malignant Hyperthermia Diabetes History Hx Diabetes?: No MRSA MRSA: No Medications Hypertension Medication: No Home Meds Incl Beta Michaela: No Reported Medications Omeprazole Magnesium (Prilosec Otc)20 Mg Tablet.dr20 Mg PO BID #1 PKG Ref 0 06/02/16 [Cannabis Oil] No Conflict Check1 Mg PO DAILY 06/02/16 Potassium 99 Mg Ejdjim47 Mg PO DAILY 06/02/16 Multivitamin (Once Daily)1 Each Tablet1 Each PO DAILY 06/01/16 [excedrin] No Conflict Check PO DIRECTED PRN For Pain 06/01/16 Cholecalciferol (Vitamin D3) (Vitamin D)1,000 Unit Capsule2,000 Unit PO DAILY 05/22/16 Multivitamin (Multivitamins)1 Each Capsule1 Each PO DAILY 05/22/16 Ondansetron ODT 4 Mg Tab.rapdis8 Mg PO BID PRN For Nausea 05/22/16 Metoclopramide (Reglan)5 Mg Tablet5 Mg PO QID 05/22/16 Discontinued Reported Medications Sucralfate 1 Gm Tablet1 Gm PO QID 05/22/16 History History of ENT Problems?: No HEENT History: Denies:: Abnormal Airway Difficult Intubation Dysphagia Hearing Problem Denture Type: None Teeth Condition: Within Normal Limits Hx of Heart Problems?: Yes Cardiovascular History: Positive for:: Chest Pain (1998) Denies:: AICD Atrial Fibrillation Congestive Heart Failure Hypertension Pacemaker Valvular Heart Disease Hx of Respiratory Problem?: No Respiratory History: Positive for:: Cough (RECENT - SINCE LAST EGD) Denies:: Asthma COPD Tuberculosis Use of C-PAP Machine Hx Neurologic Problems?: Yes Neurological History: Positive for:: Headaches Denies:: CVA Hx of GI Problems?: Yes Gastrointestinal History: Positive for:: Gastroesphageal Reflux Gastrointestinal Bleeding (hx of bleeding upper GI ulcer) Heartburn Rectal Bleeding Denies:: Cirrhosis Diverticulitis Hiatal Hernia Hx of Problems?: Yes Genitourinary History: Positive for:: Urinary Tract Infection Female Hx: Denies:: Currently Endometriosis Pelvic Inflammatory Problems with Breasts? Skin History: Denies:: History Skin Disorders? Hx Musculoskeletal Problems?: Yes Musculoskeletal History: Positive for:: Systemic Lupus Denies:: Joint Replacement Hx of Psycho/Social Problems?: No Psycho Social History: Positive for:: Anxiety Hx Depression Hx Surgeries?: Yes (GASTRIC X8, LAP DMITRIY, PARATENITIS, L ARM PLATE) Hx Any Other Health Problems?: Yes Other History: Denies:: Cancer Thyroid Disease History Blood Transfusions: Denies:: Blood Transfusions Hx Diabetes: No Hx Alcohol Use: NoHx Substance Use: No Smoking Status: Never Smoker Have You Smoked inLast 12 mo: No Stop/Bang Treated for Sleep Apnea?: No Do You Have a CPAP Machine?: No S-Snoring: Do You Snore Loudly: No T-Tired: feel tired, fatigued: No O-Obsered: Observed not breath: No P-Blood Pressure: treated: No B- Body Mass Index > 35 kg/m2: No A- Age over 50: Yes N- Neck Large Circumference: No G- Gender Male: No TY Total Score: 1 TY Risk Assessment: Low Risk, <3 Yes Risk Assessment Category Category 1A: Patient has history of documented sleep apnea, and HAS NOT received any narcotic, sedative or anesthesia administration during this stay. Category 1B: Patient has history of documented sleep apnea, and HAS received any narcotic , sedative or anesthesia administration during this stay Category 2: Patient has SUSPECTED Obstructive Sleep Apnea, and HAS received any narcotic , sedative or anesthesia administration during this stay. Category 3: Patient has SUSPECTED Obstructive Sleep Apnea and HAS NOT received narcotic, sedative or anesthesia administration during this stay. Category 4: Outpatient in Procedural Areas with known sleep apnea or who screen positive for High Risk via the STOP/BANG questionnaire. Exam Exam Vital Signs Vital Signs Date Time Temp Pulse Resp B/P Pulse Ox O2 Delivery O2 Flow Rate FiO2 06/10/16 13:34 36.5 62 16 142/69 98 Room Air General Appearance: Alert, Oriented X3, Cooperative, No Acute Distress HEENT/AIRWAY: MP 2 Lungs: Clear to Auscultation, Normal Air Movement Heart: Exam Unremarkable, Regular Rate/Rhythm, No Murmurs/Rubs/Gallops Plan Impression Patient chart reviewed, patient interviewed and anesthestic plan with risks, benefits, and alternatives discussed, and informed consent obtained. ASA Physical Status: ASA2 Mod Systemic Disease Anesthetic Plan: MAC Bene/Risks/Altern/Consents: Yes HP Complete Prior to Induction: Yes Richard Barnes MD Jun 10, 2016 14:54
[2016-06-10] MEDS ORDERED: MetoCLOpramide 5 mg/mL 2 mL Inj IVPUSH PRN (14:55)
[2016-06-10] MEDS ORDERED: Ondansetron 2 mg/mL 2 mL Inj IVPUSH PRN (14:55)
[2016-06-10 15:39] VITALS: BP 116/62; PULSE 68; RESP 14; O2SAT 96
[2016-06-10 15:49] VITALS: BP 140/80; PULSE 69; RESP 16; O2SAT 100
[2016-06-10 15:59] VITALS: BP 158/76; PULSE 68; RESP 16; O2SAT 99
--- NOTE | 2016-06-10 16:09 | ENDO ---
[address] [address] ENDOSCOPY PROCEDURE PATIENT: ABDULKADIR WHITE : 1945 MR#: [id number] ADMIT: 06/10/2016 JOB ID: [id number] DATE: 06/10/2016 PROCEDURE: Esophagogastroduodenoscopy with balloon dilatation under fluoroscopy. INDICATIONS: A 70-year-old female with a history of gastric outlet obstruction. EQUIPMENT: GIF-160. SEDATION: Monitored anesthesia as provided by Dr. Richard Barnes. COMPLICATIONS: None identified. PROCEDURAL INFORMATION: After the risks and benefits were explained, written and verbal informed consent was obtained. The patient was brought into the endoscopy suite and placed into the left lateral decubitus position. Sedation was achieved using the above-stated medications with the addition of oxygen via nasal cannula. The scope was introduced into the mouth through the bite block, and advanced under direct visualization through the oropharynx, esophagus, stomach, through the anastomosis into the duodenum. We were able to do this prior to dilating this time. The CRE balloon wire was left well downstream. We then brought the scope back into the stomach. The stricture was dilated using a 12-15 mm CRE balloon. There was a moderate amount of red blood seen following our dilatation consistent with efficacy. This was, however, not sustained and no intervention was required. We could then easily advance the scope back through the anastomosis. The stomach was decompressed. The scope removed from the patient who tolerated the procedure well. FINDINGS: 1. Esophagus: The GE junction was at about 34 cm from the incisors. No acute erosive changes. The previously seen erosive esophagitis had healed. 2. Stomach: There was minimal retained liquid and some semi solid debris which was easily suctioned up by the endoscope. The anastomosis was dilated at 1 minute intervals using the 12-15 mm CRE balloon as described above. 3. Small bowel: This appeared visually normal beyond the anastomosis. ENDOSCOPIC DIAGNOSES: 1. 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 2. Small hiatal hernia. 3. Resolved erosive esophagitis. RECOMMENDATIONS: 1. Continue proton pump inhibitor therapy. 2. Continue with dysphagia diet. Anything that is solid will need to be extensively chewed. 3. Repeat EGD with anesthesia, 45 minute slot, in about 2-3 weeks time with fluoro. 4. Continue bowel regimen.
[2016-06-30] MEDS ORDERED: SUCR1TAB PO (13:19)
== END 2016-06-10 23:59 | disposition home or self-care (01) ==
LOC: END 13:05
PROVIDERS: ATTEND Internal Medicine Gastroenterology
DX: K91.89 Other postprocedural complications and disorders of digestive system (principal); K31.1 Adult hypertrophic pyloric stenosis; K21.9 Gastro-esophageal reflux disease without esophagitis; Y83.2 Surgical operation with anastomosis, bypass or graft as the cause of abnormal reaction of the patient, or of later complication, without mention of misadventure at the time of the procedure; T85.858A Stenosis due to other internal prosthetic devices, implants and grafts, initial encounter
CPT/HCPCS: 43245; 74360; J7120; Q9967

== ENCOUNTER 2016-07-01 08:43 | Day surgery (SDC) | payer MEDICARE ==
[~2016-07-01] VITALS: Ht 152.4 cm; Wt 57.1 kg
[2016-07-01] MEDS ORDERED: fentaNYL-PF 50 mCg/mL 2 mL Inj ONE (08:44)
[2016-07-01] MEDS ORDERED: Propofol 10,000 mCg/mL 20 mL Inj ONE (08:44)
[2016-07-01] MEDS ORDERED: GABA-500 PO (09:18)
[2016-07-01 09:19] VITALS: BP 144/80; PULSE 70; RESP 16; O2SAT 99
[2016-07-01 10:57] VITALS: BP 107/52; PULSE 69; RESP 14; O2SAT 100
[2016-07-01 11:07] VITALS: BP 121/74; PULSE 70; RESP 16; O2SAT 100
[2016-07-01 11:16] VITALS: BP 132/69; PULSE 69; RESP 16; O2SAT 96
--- NOTE | 2016-07-01 11:40 | ENDO ---
[address] [address] ENDOSCOPY PROCEDURE PATIENT: ABDULKADIR WHITE : 1945 MR#: [id number] ADMIT: 07/01/2016 JOB ID: [id number] DATE: 07/01/2016 PRIMARY PROVIDER: Megan Young PA-C PROCEDURE: Esophagogastroduodenoscopy with balloon dilatation under fluoroscopy. INDICATIONS: A 70-year-old female with prior Billroth II anastomosis. This has been revised on multiple occasions. She has demonstrated significant anastomotic stenosis and repeat dilatation is pursued. EQUIPMENT: GIF H 180 J. SEDATION: Monitored anesthesia as provided by Dr. Jorge Varghese. COMPLICATIONS: None identified. PROCEDURE INFORMATION: After the risks and benefits were explained, written and verbal informed consent was obtained. The patient was brought into the endoscopy suite and placed into the left lateral decubitus position. Sedation was achieved as above. The scope was introduced into the mouth through the bite block, and advanced to the stomach. There was a moderate amount of retained soft but moderately sized solid debris. It looks like this was scrambled eggs, and for the most part, we were able to evacuate this using the accessory channel of the scope. I then uncovered the stenotic anastomosis but we could not advance the endoscope all the way through into small bowel. Under fluoroscopy we passed a wire down stream and then advanced the 12-15 mm CRE balloon into position. We sequentially dilated at 1 minute intervals up to 15 mm. The balloon was then removed. There was a moderate amount of self-limited bleeding from the anastomosis effect. I then fairly easily advanced the endoscope into the small bowel. We elected to upsize to the 15-18 mm balloon and again over a wire dilated at 16.5 mm and 18 mm at 1 minute intervals. There was no significant hemorrhagic effect after the final dilatation. We easily were able to navigate into the small bowel after this maneuver. The scope was then brought back into the stomach. Excess air removed. The scope was then withdrawn from the patient who tolerated the procedure well. FINDINGS: 1. 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 2. Esophagus: No evidence of esophagitis at present. 3. Stomach: Retained food debris as above. 4. Small bowel: It looked like there was a very short afferent limb. This almost gave the appearance of a short DJ type anastomosis rather than a Billroth II. At any rate, once we were able to get through the stenosis, the small bowel was quite normal in appearance. I did not see any significant bile during today's efforts. RECOMMENDATIONS: 1. Continue PPI and bowel regimen. 2. Continue dysphagia diet. 3. Repeat EGD with fluoroscopy and anesthesia 45 minutes slot in two weeks' time.
== END 2016-07-01 23:59 | disposition home or self-care (01) ==
LOC: END 08:43
PROVIDERS: ATTEND Internal Medicine Gastroenterology
DX: K31.1 Adult hypertrophic pyloric stenosis (principal); Q07.01 Arnold-Chiari syndrome with spina bifida; K21.9 Gastro-esophageal reflux disease without esophagitis; K59.00 Constipation, unspecified
CPT/HCPCS: 43249; 74360; J3010; J7120; Q9967

== ENCOUNTER 2016-07-28 10:27 | Day surgery (SDC) | payer MEDICARE ==
[~2016-07-28] VITALS: Ht 152.4 cm; Wt 63.0 kg
--- NOTE | 2016-07-28 07:14 | PCM.HPANE ---
Patient Data Surgeon Admitting Provider: Attending Provider:Manuel Bush MD Primary Care Physician:Megan Young PA-C Other Provider:King Nino Anesthesia Reason for Visit Gastric Outlet Obstruction Ht/WT & BMI Body Mass Index Allergies Coded Allergies: prednisone (Verified Allergy, Mild, EMOTIONAL RAGE, 07/27/16) Oxycodone Terephthalate (Verified Allergy, Unknown, Hallucinations, 07/27/16 ) ibuprofen (Verified Allergy, Unknown, Abdominal Pain, 07/27/16) morphine (Verified Allergy, Unknown, Hallucinations, 07/27/16) oxycodone HCl (Verified Allergy, Unknown, Hallucinations, 07/27/16) zolpidem tartrate (Verified Allergy, Unknown, hallucinations, 07/27/16) aspirin (Verified Adverse Reaction, Unknown, ulcers, 07/27/16) Past Anesthesia History Anesthesia History: Denies:: Abnormal Airway, Anesthesia Reactions, Difficult Intubation, Fam Anesthesia Reaction, Fam Malignant Hypertherm, Malignant Hyperthermia Diabetes History Hx Diabetes?: No MRSA MRSA: No Medications Hypertension Medication: No Home Meds Incl Beta Michaela: No Reported Medications Gabapentin 100 Mg [id number] Mg PO QID 30 Days Ref 0 07/01/16 Omeprazole Magnesium (Prilosec Otc)20 Mg Tablet.dr20 Mg PO BID #1 PKG Ref 0 06/02/16 [Cannabis Oil] No Conflict Check1 Mg PO DAILY 06/02/16 Potassium 99 Mg Srlyvm06 Mg PO DAILY 06/02/16 [excedrin] No Conflict Check PO DIRECTED PRN For Pain 06/01/16 Cholecalciferol (Vitamin D3) (Vitamin D)1,000 Unit Capsule2,000 Unit PO DAILY 05/22/16 Multivitamin (Multivitamins)1 Each Capsule1 Each PO DAILY 05/22/16 Metoclopramide (Reglan)5 Mg Tablet5 Mg PO QID 05/22/16 Discontinued Reported Medications Multivitamin (Once Daily)1 Each Tablet1 Each PO DAILY 06/01/16 Ondansetron ODT 4 Mg Tab.rapdis8 Mg PO BID PRN For Nausea 05/22/16 History History of ENT Problems?: No HEENT History: Denies:: Abnormal Airway Difficult Intubation Dysphagia Hearing Problem Denture Type: None Teeth Condition: Within Normal Limits Hx of Heart Problems?: Yes Cardiovascular History: Positive for:: Chest Pain (1998) Heart Murmur Denies:: AICD Atrial Fibrillation Congestive Heart Failure Hypertension Pacemaker Valvular Heart Disease Hx of Respiratory Problem?: No Respiratory History: Positive for:: Cough (RECENT - SINCE LAST EGD) Denies:: Asthma COPD Tuberculosis Use of C-PAP Machine Hx Neurologic Problems?: Yes Neurological History: Positive for:: Headaches Denies:: CVA Hx of GI Problems?: Yes Hx of Problems?: Yes Genitourinary History: Positive for:: Urinary Tract Infection HX of Peritoneal Dialysis: No Female Hx: Denies:: Currently Endometriosis Pelvic Inflammatory Problems with Breasts? Skin History: Denies:: History Skin Disorders? Hx Musculoskeletal Problems?: Yes Musculoskeletal History: Positive for:: Systemic Lupus Denies:: Joint Replacement Hx of Psycho/Social Problems?: No Psycho Social History: Positive for:: Anxiety Hx Depression Hx Surgeries?: Yes (GASTRIC X8, LAP DMITRIY, PARATENITIS, L ARM PLATE) Hx Any Other Health Problems?: Yes Other History: Denies:: Cancer Thyroid Disease History Blood Transfusions: Denies:: Blood Transfusions Hx Diabetes: No Hx Alcohol Use: NoHx Substance Use: No Smoking Status: Never Smoker Have You Smoked inLast 12 mo: No Stop/Bang Treated for Sleep Apnea?: No Do You Have a CPAP Machine?: No TY Risk Assessment: Low Risk, <3 Yes Risk Assessment Category Category 1A: Patient has history of documented sleep apnea, and HAS NOT received any narcotic, sedative or anesthesia administration during this stay. Category 1B: Patient has history of documented sleep apnea, and HAS received any narcotic , sedative or anesthesia administration during this stay Category 2: Patient has SUSPECTED Obstructive Sleep Apnea, and HAS received any narcotic , sedative or anesthesia administration during this stay. Category 3: Patient has SUSPECTED Obstructive Sleep Apnea and HAS NOT received narcotic, sedative or anesthesia administration during this stay. Category 4: Outpatient in Procedural Areas with known sleep apnea or who screen positive for High Risk via the STOP/BANG questionnaire. Exam Exam General Appearance: Alert, Oriented X3, Cooperative, No Acute Distress HEENT/AIRWAY: MP 2 Lungs: Clear to Auscultation, Normal Air Movement Heart: Exam Unremarkable, Regular Rate/Rhythm, No Murmurs/Rubs/Gallops Plan Impression Patient chart reviewed, patient interviewed and anesthestic plan with risks, benefits, and alternatives discussed, and informed consent obtained. NPO per Anesth. Guidelines: Yes ASA Physical Status: ASA2 Mod Systemic Disease Anesthetic Plan: MAC Bene/Risks/Altern/Consents: Yes HP Complete Prior to Induction: Yes Jacob Pagan MD Jul 28, 2016 07:14
[~2016-07-28 10:27] MED LIST changes: +GABA-500 PO; +Lactated Ringer's 1,000 ML IV SCH; +MetoCLOpramide 5 mg/mL 2 mL Inj IVPUSH PRN; +Ondansetron 2 mg/mL 2 mL Inj IVPUSH PRN; -SUCR1TAB PO
[2016-07-28] MEDS ORDERED: Ketamine 10 mg/mL 20 mL Inj ONE (10:28)
[2016-07-28] MEDS ORDERED: Propofol 10,000 mCg/mL 20 mL Inj ONE (10:28)
[2016-07-28 10:51] VITALS: BP 117/60; PULSE 69; RESP 14; O2SAT 100
[2016-07-28 11:16] LABS: Mean Corpuscular Hemoglobin 27.4 pg (27.0-35.0); Mean Corpuscular Volume 88.3 fL (81-100)
[2016-07-28 14:00] VITALS: BP 142/69; PULSE 88; RESP 16; O2SAT 98
[2016-07-28 14:10] VITALS: BP 154/73; PULSE 85; RESP 14; O2SAT 100
--- NOTE | 2016-07-28 22:02 | ENDO ---
[address] [address] ENDOSCOPY PROCEDURE PATIENT: MINDI WHITE : 1945 MR#: [id number] ADMIT: 07/28/2016 JOB ID: [id number] PRIMARY PROVIDER: Megan Young PA-C. PROCEDURE: Esophagogastroduodenoscopy with balloon dilatation and Gold Probe application for hemostasis. INDICATIONS: A 70-year-old female with recurrent high-grade outlet obstruction in the face of a Billroth II partial gastrectomy and anastomosis. At her last dilatation, a couple days later she had significant symptoms of GI bleeding, and because of the bed situation here, was transferred up to [place]. Dr. Avina's procedure note is again reviewed. I actually spoke with Dr. Avina after for her case at that time. She has not had any recurrence of bleeding. Still struggles with nausea and slightly suboptimal bowel evacuations. Updated labs today indicate hemoglobin was 12.4. Calcium was a little elevated at 10.4. EQUIPMENT: GIF-H190. SEDATION: Monitored anesthesia as provided by Dr. Jacob Pagan. COMPLICATIONS: None identified. There was some post dilatation bleeding and this was managed with the Gold Probe as described below. PROCEDURE INFORMATION: After the risks and benefits were explained, written and verbal informed consent was obtained, the patient was brought into the endoscopy suite and placed into the left lateral decubitus position. Sedation was achieved using the above-stated medications with the addition of oxygen via nasal cannula. The scope was introduced into the mouth through the bite block, and advanced under direct visualization to the stomach. We encountered a moderate amount of retained food and liquid debris. We spent a considerable amount of time suctioning this out of the stomach. We eventually then uncovered the anastomosis and we were able to navigate the endoscope through into the small bowel relatively easily. The CRE wire was left in place. I positioned the 12-15 mm balloon across the stenosis which still had a small amount of ulceration evident. We sequentially dilated at at least 1-minute intervals from 12 to 13.5 to 15 mm. After the final dilatation, it was even easier to navigate the scope all the way through into duodenum. There was, however, a small amount of continued oozing from the dilatation site, and in light of her history of significant postprocedural hemorrhage, we applied the 7-Kazakh Gold Probe to this area to create complete hemostasis. The residual solid food debris that remained in the stomach that could not be suctioned with the endoscope, we chopped up with a polypectomy snare. The stomach was then decompressed, the scope removed from the patient who tolerated the procedure quite well. FINDINGS: See above. GE junction was at about 35 cm from the incisors. No acute erosive changes. Retained food debris in the stomach, as described above. Again, a high-grade stenosis at the Billroth-II anastomosis. The patient had an exceedingly short afferent limb. Dilatation was successful up to 15 mm. In light of the bleeding that occurred at our last procedure, I did not elect to go up to 18 this time around (especially with some post dilatation bleeding requiring Gold Probe). The duodenal mucosa appeared otherwise normally on the anastomosis. ENDOSCOPIC DIAGNOSES: 1. High-grade Billroth II anastomotic stricture, status post dilatation to 15 mm. 2. Post dilatation mild hemorrhage, requiring Gold Probe application. 3. Retained gastric food debris. RECOMMENDATIONS: 1. Continue acid suppression. 2. Continue smoothie-like diet. I would recommend against raw fruits and vegetables and/or meats at this point. If these things are used, they should be, in essence, put through a food stand manager so particle size is sufficiently small to navigate through the anastomosis. 3. The patient has expressed a desire to not proceed with further surveillance dilatation at this time and would rather see how she does on an as-needed basis. We therefore have invited Mindi back to the clinic for about 4-6 weeks time to see how she is getting on and plan out our next procedure at that time.
--- NOTE | 2016-07-29 07:47 | PCM.ANEP1 ---
Post Anesthesia PACU Phase 1 Assessment Anesthetic Administered: MAC Level of Alertness: Awake, talking LAZARO's with Equal Strength: Yes Pain: No Nausea or Vomiting: No CV Function & Hydration Stable: Yes Airway Device: none Oxygen Delivery: Nasal Cannula Lungs: Clear to Auscultation, Normal Air Movement Dermatome Level: Full Sensation PACU Phase 2 Assessment Complications: No Follow up Care: No Patient Instructions Provided: Yes Jacob Pagan MD Jul 29, 2016 07:47
== END 2016-07-28 23:59 | disposition home or self-care (01) ==
LOC: END 10:27
PROVIDERS: ATTEND Internal Medicine Gastroenterology
DX: K91.89 Other postprocedural complications and disorders of digestive system (principal); K22.2 Esophageal obstruction; K31.1 Adult hypertrophic pyloric stenosis; K92.0 Hematemesis; K59.00 Constipation, unspecified; M79.7 Fibromyalgia; M32.9 Systemic lupus erythematosus, unspecified; F41.8 Other specified anxiety disorders; K21.9 Gastro-esophageal reflux disease without esophagitis; Z90.710 Acquired absence of both cervix and uterus; Z90.3 Acquired absence of stomach [part of]; Z98.0 Intestinal bypass and anastomosis status
CPT/HCPCS: 36415; 43245; 74360; 80053; 85027; J7120; Q9967

== ENCOUNTER 2016-07-30 00:30 | Observation (INO) | payer MEDICARE ==
[~2016-07-30] VITALS: Ht 152.4 cm; Wt 59.3 kg
[2016-07-30] VITALS (13 sets, daily range): BP systolic 98–140; BP diastolic 51–63; PULSE 77–94; RESP 16–20; O2SAT 97–98
[~2016-07-30 00:30] MED LIST changes: -Lactated Ringer's 1,000 ML IV ONE; -Lactated Ringer's 1,000 ML IV SCH; -MULT-666 PO; -MetoCLOpramide 5 mg/mL 2 mL Inj IVPUSH PRN; -ONDA4TAB12 PO; -Ondansetron 2 mg/mL 2 mL Inj IVPUSH PRN
--- NOTE | 2016-07-30 00:58 | PCM.HPMED ---
Subjective Date of Service Jul 30, 2016 Primary Provider: Admitting Physician: Arlet Herrera DO Primary Care Physician: Megan Yuong PA-C Attending Physician: Arlet Herrera DO Admit Status: Direct Admit ([place] ) Chief Complaint: coffee ground emesis following EGD History of Present Illness: 70yoF with past medical history of PUD and perforated ulcer s/p KATIUSKA forbes with recent EGD transferred from [place] due to concern for hematemesis post procedure. Patient states that in the past she has had difficulties with EGD and dilation with complications of post procedure bleed and hematemesis. 07/28 patient was seen by Dr. Bush for a repeat EGD with dilation. 07/29 she began having nausea and vomited three times and notes "a lot of blood". Patient is quite fatigued during interview but as per OSH documentation she initially had two episodes of coffee ground emesis and a third episode of emesis with blood streaks in mucous. As she began to have a bowel movement patient passed out and EMS was called by her daughter. She remembers nothing following this syncopal event until arriving at [place] ED. As per report guaiac was negative. Dr. Bush was called and felt as though there was no urgent need for procedure and patient is likely no actively bleeding. At this time she has no complaints and denies nausea, lightheadedness, dizziness , chest pain, chest tightness, dyspnea, or abdominal pain. T 36.7, HR 94, RR 20, BP 112/57. Review of Systems: complete review of systems obtained. positive as per hpi otherwise negative Allergies Coded Allergies: prednisone (Verified Allergy, Mild, EMOTIONAL RAGE, 07/27/16) Oxycodone Terephthalate (Verified Allergy, Unknown, Hallucinations, 07/27/16 ) ibuprofen (Verified Allergy, Unknown, Abdominal Pain, 07/27/16) morphine (Verified Allergy, Unknown, Hallucinations, 07/27/16) oxycodone HCl (Verified Allergy, Unknown, Hallucinations, 07/27/16) zolpidem tartrate (Verified Allergy, Unknown, hallucinations, 07/27/16) aspirin (Verified Adverse Reaction, Unknown, ulcers, 07/27/16) Home Medications Tramadol Lidocaine patch Gabapentin Omeprazole Ondansetron Sucralfate Metoclopramide Potassium Excedrin extra strength PMH 1. Gastric outlet obstruction 2. Acute upper GI bleed with perforated gastric ulcer 3. Chronic headaches takes OTC Excedrin 4. Overactive bladder 5. Fibromyalgia 6. Systemic Lupus, diagnosis questioned in light of recent blood work showing no evidence of Lupus Surgical History Revised Billroth II, complicated with post operative complications including infection Hysterectomy Appendectomy Left arm ORIF Family History No history of cancer Social History Hx Alcohol Use: No Hx Substance Use: No Hx Tobacco Use: No Smoking Status: Never Smoker Exam Vital Signs Vital Sign - Last Date Time Temp Pulse Resp B/P Pulse Ox O2 Delivery O2 Flow Rate FiO2 07/30/16 00:42 36.7 94 20 112/57 97 Nasal Cannula 2.00 Exam General: Alert, Oriented X3, Cooperative, No acute Distress, obvious fatigue Eyes: PERRLA, Scleral Anicteric Mouth: Mouth Normal, Mucous Membranes Moist/[place] Neck: Supple, no Thyromegaly, trachea central. Chest & Lungs: Clear to auscultation & percussion, No adventitious breath sounds, no crackles, no wheeze Cardiovascular: Normal S1, Normal S2, No Murmurs/Rubs/Gallops, Regular Rate/ Rhythm, (No JVD, no peripheral edema) Pulses: Radial (present and equal), Dorsalis Pedi (present and equal) Abdomen: Soft, non-tender, Non-distended, hypoactive bowel tones. Musculoskeletal: Unremarkable. Normal range of motion, no swollen or erythematous joints Extremities: No edema, no cyanosis, no clubbing. Skin: No rashes. Warm and dry, no erythematous areas Neurological: Grossly neurologically intact, Normal Speech, Sensation Intact Lymphatic: Lymph nodes Cervical and Axillary not palpable Lab and Diagnostics 12-lead ECG reviewed by admitting physician from record review Sinus HR 82, no ischemic change Assessment & Plan 70yoF with past medical history of PUD and perforated ulcer, GOO with recent EGD transferred from [place] due to concern for hematemesis post procedure. Hematemesis, acute, POA -likely secondary to EGD and dilation, patient with history of GIB following procedure, PUD less likely, perforation less likely -stat cbc upon arrival, repeat H&H q4hr overnight then q6hr -NPO at this time, mIVF -pantoprazole 40iv given at OSH, will give an additional 40 at this time and then start 40IV BID -CI consulted prior to transfer, AM team to confirm consultation, recs appreciated GOO, chronic, POA -recent EGD with dilation -NPO at this time, to advance to clears and fulls when proven stable and approved by GI Headaches, chronic -pt takes excedrin for this problem -acetaminophen will be made available Patient admitted under observation status with admission <2 day in duration. Pain Evaluation: Adequate Pain Control (no pain at this time) GI Prophylaxis: Proton Pump Inhibitor VTE Prophylaxis: SCDs Resuscitation Status: CPR: Attempt Resuscitation Arlet Herrera DO Jul 30, 2016 00:58
[2016-07-30] MEDS ORDERED: 0.9% Sodium Chloride 1,000 ML IV SCH (00:59)
[2016-07-30] MEDS ORDERED: Ondansetron 2 mg/mL 2 mL Inj IVPUSH PRN (01:00)
[2016-07-30] MEDS ORDERED: Pantoprazole Inj 80 MG in 0.9% Sodium Chloride-Pha MIX 80 ML IV SCH (01:15)
[2016-07-30] MEDS ORDERED: Pantoprazole 4 mg/mL 10 mL Inj IVPUSH ONE (01:15)
[2016-07-30 01:52] LABS: BASOPHILS % (AUTO) 0.2 % (0-3); EOSINOPHILS % (AUTO) 0.1 % (0-5); MONOCYTES % (AUTO) 4.1 % (4-12); Mean Corpuscular Hemoglobin 27.7 pg (27.0-35.0); NEUTROPHILS % (AUTO) 86.7 % (40-74); Platelet Count 266 bil/L (150-400)
[2016-07-30] MEDS: 0.9% Sodium Chloride 1,000 ML IV SCH ×3 (01:54→17:27)
[2016-07-30 02:09] LABS: INR 1.03 ratio
--- NOTE | 2016-07-30 02:14 | NUR ---
PCC Admit note Admitted patient from [facility] for hematemesis @ 0030. Pt transferred in with acls transport via gurney. Pt initially drowsy upon arrival, now more alert and interactive with staff, pt denies any pain/discomfort, no nausea/vomiting. tele: NSR, BP stable, Pt c/o very weak, needing 2 person assist with bed mobility. Admitting MD at bedside; given protonix IV and started with IV NS @ 80 /hr, NPO, explained POC, call light within reach. Addendum: 07/30/16 at 0621 by YENNY WILSON RN Addendum: Repeat H/H this am resulted with 8.3/27.5, Notified Dr. Redd, ordered Type and screen pt.
[2016-07-30] MEDS: Pantoprazole 4 mg/mL 10 mL Inj IVPUSH SCH ×2 (08:43→17:26)
--- NOTE | 2016-07-30 12:18 | NUR ---
Social Work: Initial Assessment D: EMR reviewed. Pt is a 70 y/o female Ok for hematemesis per H&P. COOPER met with pt at bedside to conduct initial assessment. Pt was alert and oriented x3. SW explained role and wrote phone number on white board in room. SW confirmed pt has completed DPOA/advanced directive ppw and encouraged pt to provide a copy to the hospital. Pt's DPOA/primary contact is daughter Rosemarie Milligan ([phone]) and can be contacted for discharge planning. Pt's insurance is Medicare and PCP is Megan Young PA-C. Pt has no SNF or HH hx. Pt does not have [employer] insurance or VA benefits. Pt does not use or own any DME. Pt is independent with ADLs. Pt drives. Pt lives with her daughter in a single-story home with 2 steps to enter in [place]. Pt declines any discharge planning needs at this time. Pt's daughter will provide transport via POV when pt is medically stable. SW does not anticipate any discharge needs at this time. SW will continue to follow if needs arise. A: Pt who is independent at baseline. P: Pt's daughter will provide transport via POV when pt is medically stable. SW does not anticipate any discharge needs at this time. SW will continue to follow if needs arise. CHATO Santos Addendum: 07/30/16 at 1224 by TYRESE HECTOR SS Amended: Links added.
[2016-07-30] MEDS ORDERED: Propofol 10,000 mCg/mL 20 mL Inj ONE (14:14)
[2016-07-30] MEDS ORDERED: Lactated Ringer's 1,000 ML IV ONE (15:47)
[2016-07-30] MEDS ORDERED: Lactated Ringer's 1,000 ML IV SCH (16:08)
--- NOTE | 2016-07-30 16:55 | PCM.PNMED ---
Subjective Date of Service Jul 30, 2016 Subjective 70yoF with past medical history of PUD and perforated ulcer s/p bill krishnan, gastric outlet obstruction with recent EGD transferred from [place] due to concern for hematemesis post procedure. She reports improvement of her nausea and vomiting. She does not have abdominal pain. She feels fatigued. Exam Vital Signs Vital Sign - Last Date Time Temp Pulse Resp B/P Pulse Ox O2 Delivery O2 Flow Rate FiO2 07/30/16 16:38 36.5 89 16 137/63 97 Room Air 07/30/16 08:40 2.00 Intake and Output 07/29/16 07/29/16 07/30/16 Cumulative From/Thru 15:00 23:00 07:00 07/30/16 00:43 - 07/30/16 06:08 Intake Total 390 ml 390 ml Output Total 700 ml 700 ml Balance -310 ml -310 ml Intake Oral 125 ml 125 ml IV Total 265 ml 265 ml Output Urine Total 700 ml 700 ml Exam General: Alert, Oriented X3, Cooperative, No acute Distress, obvious fatigue Eyes: PERRLA, Scleral Anicteric Mouth: Mouth Normal, Mucous Membranes Moist/[place] Neck: Supple, no Thyromegaly, trachea central. Chest & Lungs: Clear to auscultation & percussion, No adventitious breath sounds, no crackles, no wheeze Cardiovascular: Normal S1, Normal S2, No Murmurs/Rubs/Gallops, Regular Rate/ Rhythm, (No JVD, no peripheral edema) Pulses: Radial (present and equal), Dorsalis Pedi (present and equal) Abdomen: Soft, non-tender, Non-distended, hypoactive bowel tones. Musculoskeletal: Unremarkable. Normal range of motion, no swollen or erythematous joints Extremities: No edema, no cyanosis, no clubbing. Skin: No rashes. Warm and dry, no erythematous areas Neurological: Grossly neurologically intact, Normal Speech, Sensation Intact Lymphatic: Lymph nodes Cervical and Axillary not palpable IVs and Medications Medications Reviewed: Medications were reviewed in detail Lab and Diagnostics Result Diagram: 07/30/16 0920 07/30/16 0140 12-lead ECG reviewed by admitting physician from record review Sinus HR 82, no ischemic change Assessment & Plan 70yoF with past medical history of PUD and perforated ulcer, GOO with recent EGD transferred from [place] due to concern for hematemesis post procedure. Hematemesis, acute, present on admission -likely secondary to EGD and dilation, patient with history of GIB following procedure, PUD less likely, perforation less likely -stat cbc upon arrival, repeated H&H q4hr overnight -continue to trend every 4 hours until possible endoscopy -NPO at this time, maintenance IVF until possible endoscopy -pantoprazole 40iv given at OSH, will give an additional 40 at this time and then start 40IV BID -GI consulted prior to transfer and following. Their time and recommendations are appreciated. -Transfusion if drop in hemoglobin/hematocrit Gastric outlet obstruction, chronic, present on admission -recent EGD with dilation -NPO at this time, to advance to clears and fulls when proven stable and approved by GI Headaches, chronic -pt takes excedrin for this problem and will hold due to hematemesis -acetaminophen and Fioricet as needed for headaches Fibromyalgia, chronic. -resume gabapentin likely tomorrow GI Prophylaxis: Proton Pump Inhibitor VTE Prophylaxis: SCDs VTE Mechanical Devices: Intermittant Pneumatic CD Resuscitation Status: CPR: Attempt Resuscitation Attending Statement The patient was seen and examined together with Dr. Bonilla on 07/30/16 and I have added additional information to the note above. Neela Bonilla DO Jul 30, 2016 16:55 Shamika Bird DO Aug 01, 2016 18:37
--- NOTE | 2016-07-30 17:20 | PCM.ANEP1 ---
Post Anesthesia PACU Phase 1 Assessment Vital Signs Vital Signs Date Time Temp Pulse Resp B/P Pulse Ox O2 Delivery O2 Flow Rate FiO2 07/30/16 16:38 36.5 89 16 137/63 97 Room Air 07/30/16 16:21 90 16 123/56 98 Room Air 07/30/16 16:11 88 16 109/58 97 Room Air 07/30/16 16:01 94 16 126/59 97 Room Air 07/30/16 14:26 36.5 77 16 128/58 98 Room Air 07/30/16 12:04 37.2 85 16 124/55 97 Room Air Anesthetic Administered: GA, MAC Level of Alertness: Awake, talking LAZARO's with Equal Strength: Yes Pain: No Nausea or Vomiting: No CV Function & Hydration Stable: Yes Airway Device: Oxygen Delivery: Room Air Lungs: Clear to Auscultation, Normal Air Movement Dermatome Level: Full Sensation PACU Phase 2 Assessment Complications: No Follow up Care: N/A Patient Instructions Provided: N/A Mark Ramirez MD Jul 30, 2016 17:20
--- NOTE | 2016-07-30 17:20 | PCM.HPANE ---
Patient Data Surgeon Admitting Provider:Arlet Herrera DO Attending Provider:Arlet Herrera DO Primary Care Physician:Megan Young PA-C Other Provider: Reason for Visit Hematemisis Ht/WT & BMI Height (Feet): 5 Height (Inches): 0.00 Weight (Kilograms): 59.300 Body Mass Index 25.00 Allergies Coded Allergies: prednisone (Verified Allergy, Mild, EMOTIONAL RAGE, 07/27/16) Oxycodone Terephthalate (Verified Allergy, Unknown, Hallucinations, 07/27/16 ) ibuprofen (Verified Allergy, Unknown, Abdominal Pain, 07/27/16) morphine (Verified Allergy, Unknown, Hallucinations, 07/27/16) oxycodone HCl (Verified Allergy, Unknown, Hallucinations, 07/27/16) zolpidem tartrate (Verified Allergy, Unknown, hallucinations, 07/27/16) aspirin (Verified Adverse Reaction, Unknown, ulcers, 07/27/16) Past Anesthesia History Anesthesia History: Denies:: Abnormal Airway, Anesthesia Reactions, Difficult Intubation, Fam Anesthesia Reaction, Fam Malignant Hypertherm, Malignant Hyperthermia Diabetes History Hx Diabetes?: No MRSA MRSA: No Medications Reported Medications Gabapentin 100 Mg [id number] Mg PO QID PRN For Pain 30 Days Ref 0 07/01/16 Omeprazole Magnesium (Prilosec Otc)20 Mg Tablet.dr20 Mg PO BID #1 PKG Ref 0 06/02/16 [Cannabis Oil] No Conflict Check1 Mg PO DAILY 06/02/16 Potassium 99 Mg Mnpndn17 Mg PO DAILY 06/02/16 [excedrin] No Conflict Check PO DIRECTED PRN For Pain 06/01/16 Cholecalciferol (Vitamin D3) (Vitamin D)1,000 Unit Capsule2,000 Unit PO DAILY 05/22/16 Metoclopramide (Reglan)5 Mg Tablet5 Mg PO QID 05/22/16 Discontinued Reported Medications Multivitamin (Multivitamins)1 Each Capsule1 Each PO DAILY 05/22/16 Multivitamin (Once Daily)1 Each Tablet1 Each PO DAILY 06/01/16 Ondansetron ODT 4 Mg Tab.rapdis8 Mg PO BID PRN For Nausea 05/22/16 History History of ENT Problems?: No HEENT History: Denies:: Abnormal Airway Cataracts Difficult Intubation Dysphagia Glaucoma Hearing Problem Sinus Problem TMJ Denture Type: None Teeth Condition: Within Normal Limits Hx of Heart Problems?: Yes Cardiovascular History: Positive for:: Chest Pain (chest pain in the past) Heart Murmur Denies:: AICD Abdominal Aortic Aneurism Atrial Fibrillation Cardiac Surgery Congestive Heart Failure Coronary Artery Disease Edema Hypertension Irregular Heartbeat Pacemaker Peripheral Vascular Rheumatic Fever Thrombophlebitis Valvular Heart Disease Hx of Respiratory Problem?: No Respiratory History: Denies:: Asthma COPD Chest Surgery Cough Dyspnea Emphysema Hemoptysis Oxygen Administration Pneumonia Pulmonary Embolism Tuberculosis Use of C-PAP Machine Use of Inhalers / NEBS Hx Neurologic Problems?: Yes Neurological History: Positive for:: Headaches (Severe) Denies:: Alzheimer's Disease CVA Dementia Dizziness Multiple Sclerosis Parkinson's Disease Peripheral Neuropathy Seizures TIA Hx of GI Problems?: Yes Gastrointestinal History: Denies:: Cirrhosis Diverticulitis Gall Bladder Disease Gastroesphageal Reflux Gastrointestinal Bleeding Heartburn Hepatitis Hiatal Hernia Liver Disease Rectal Bleeding Hx of Problems?: Yes Genitourinary History: Positive for:: Urinary Tract Infection Denies:: HX of Hemodialysis Kidney Stones HX of Peritoneal Dialysis: No Female Hx: Denies:: Currently Endometriosis Pelvic Inflammatory Problems with Breasts? Skin History: Denies:: History Skin Disorders? Pressure Ulcers Hx Musculoskeletal Problems?: Yes Musculoskeletal History: Positive for:: Musculoskeletal Trauma (Left arm fracture) Systemic Lupus Denies:: Back Injury Degenerative Joint Fibromyalgia Joint Replacement Myasthenia Gravis Osteoarthritis Rheumatoid Arthritis Hx of Psycho/Social Problems?: Yes Psycho Social History: Positive for:: Anxiety Hx Depression Denies:: Bipolar Disorder Suicide Attempt Hx Surgeries?: Yes (Gastric surgery x 8, Lap Justyna, paratenitis, Lt arm plate) Hx Any Other Health Problems?: Yes Other History: Positive for:: Hospitalization Denies:: Cancer Endocrine Disease Thyroid Disease History Blood Transfusions: Positive for:: Accept Blood Products? Denies:: Blood Transfuse Reaction Blood Transfusions Hx Diabetes: No Other Pertinent History: Systemic Lupus Hx Alcohol Use: NoHx Substance Use: No Smoking Status: Never Smoker Have You Smoked inLast 12 mo: No Stop/Bang Treated for Sleep Apnea?: No Do You Have a CPAP Machine?: No S-Snoring: Do You Snore Loudly: No T-Tired: feel tired, fatigued: No O-Obsered: Observed not breath: No P-Blood Pressure: treated: No B- Body Mass Index > 35 kg/m2: No A- Age over 50: Yes N- Neck Large Circumference: No G- Gender Male: No TY Total Score: 1 Risk Assessment Category Category 1A: Patient has history of documented sleep apnea, and HAS NOT received any narcotic, sedative or anesthesia administration during this stay. Category 1B: Patient has history of documented sleep apnea, and HAS received any narcotic , sedative or anesthesia administration during this stay Category 2: Patient has SUSPECTED Obstructive Sleep Apnea, and HAS received any narcotic , sedative or anesthesia administration during this stay. Category 3: Patient has SUSPECTED Obstructive Sleep Apnea and HAS NOT received narcotic, sedative or anesthesia administration during this stay. Category 4: Outpatient in Procedural Areas with known sleep apnea or who screen positive for High Risk via the STOP/BANG questionnaire. Exam Exam Vital Signs Vital Signs Date Time Temp Pulse Resp B/P Pulse Ox O2 Delivery O2 Flow Rate FiO2 07/30/16 14:26 36.5 77 16 128/58 98 Room Air 07/30/16 12:04 37.2 85 16 124/55 97 Room Air 07/30/16 08:40 36.7 88 18 109/51 2.00 07/30/16 08:30 Supplement Oxygen 07/30/16 08:00 85 General Appearance: Alert, Oriented X3, Cooperative, No Acute Distress HEENT/AIRWAY: MP 2, Neck Movement (FROM), Mouth Opening (3 FBMO) Lungs: Clear to Auscultation, Normal Air Movement Heart: Exam Unremarkable, Regular Rate/Rhythm, No Murmurs/Rubs/Gallops Meds/Labs/Diagnostics Admission Meds Current Medications Pantoprazole 40 mg 40 mg ONCE ONCE IVPUSH Last administered on 07/30/16 01:48 ; Start 07/30/16 at 01:15; Stop 07/30/16 at 01:16; Status DC Sodium Chloride (Normal Saline) 1,000 ml @ 80 mls/hr [id number] IV Last administered on 07/30/16 01:54; Start 07/30/16 at 01:45 Pantoprazole (Protonix Inj) 40 mg BIDAC IVPUSH Last administered on 07/30/16 08 :43; Start 07/30/16 at 07:30 Labs Test 07/30/16 01:40 07/30/16 09:20 White Blood Count 16.4th/mm3 (3.8-10.1) Red Blood Count 3.29mil/mm3 (3.90-5.20) Mean Corpuscular Volume 90.0fL (81-100) Mean Corpuscular Hemoglobin 27.7pg (27.0-35.0) Mean Corpuscular Hemoglobin Concent 30.7% (32.0-37.0) Red Cell Distribution Width 17.1% (12.3-15.4) Platelet Count 266bil/L (150-400) Neutrophils (%) (Auto) 86.7% (40-74) Lymphocytes (%) (Auto) 8.6% (14-46) Monocytes (%) (Auto) 4.1% (4-12) Eosinophils (%) (Auto) 0.1% (0-5) Basophils (%) (Auto) 0.2% (0-3) Prothrombin Time 11.0sec (8.1-12.5) Prothromb Time International Ratio 1.03ratio Sodium Level 141mEq/L (134-144) Potassium Level 3.9mEq/L (3.5-5.2) Chloride Level 109mEq/L (97-108) Carbon Dioxide Level 20mmol/L (18-29) Blood Urea Nitrogen 20mg/dL (8-27) Creatinine 0.46mg/dL (0.57-1.00) Estimat Glomerular Filtration Rate 191mL/min (>59) Glucose Level 108mg/dL (60-99) Calcium Level 7.9mg/dL (8.5-10.1) Total Bilirubin 0.2mg/dL (0.0-1.2) Aspartate Amino Transf (AST/SGOT) 13U/L (0-50) Alanine Aminotransferase (ALT/SGPT) 12U/L (0-32) Alkaline Phosphatase 85U/L (25-165) Total Protein 5.8g/dL (6.4-8.4) Albumin 3.5g/dL (3.4-5.0) Hold Lemon Top Tube Received (Received) Hemoglobin 9.4g/dL (12.0-15.6) Hematocrit 30.9% (35.0-46.0) Plan Impression Patient chart reviewed, patient interviewed and anesthestic plan with risks, benefits, and alternatives discussed, and informed consent obtained. NPO per Anesth. Guidelines: Yes ASA Physical Status: ASA2 Mod Systemic Disease Anesthetic Plan: GA, MAC Bene/Risks/Altern/Consents: Yes HP Complete Prior to Induction: Yes Mark Ramirez MD Jul 30, 2016 15:40
--- NOTE | 2016-07-30 17:34 | CONS ---
[address] [address] CONSULTATION REPORT PATIENT: ABDULKADIR WHITE : 1945 MR#: [id number] ADMIT: 07/30/2016 JOB ID: [id number] DATE OF SERVICE: 07/30/2016 REQUESTING PROVIDER: Arlet Herrera MD and the [facility] ER physician. REASON FOR CONSULTATION: Coffee-ground emesis. HISTORY OF PRESENT ILLNESS: This is a 70-year-old female with a history of high-grade gastric outlet obstruction in the context of a Billroth-II style gastroduodenostomy anastomosis. She has had a number of dilatations. The last dilatation she had a fairly significant bleed requiring transfusion and transfer up to [facility]. She was treated with gold probe. On July 28, she had another dilatation. We did not dilate as much as we did on her previous case July 01. We went up to 15 mm. She still had some mild bleeding that I treated with the 7-[place]ese gold probe at that time. The bleeding had ceased, however, the patient had another syncopal event or vasovagal event while on the toilet. She had a moderate amount of coffee-ground emesis. She has not had melena. The patient notes that one time she did see a little bit of red blood in the vomit. She was transferred over from [facility] to our facility and has not required a transfusion. Hemoglobin early this morning was 9.1; it was 8.3 this morning. Without transfusion, it was back up to 9.4. Other than headache, the patient really is not having any other further complaints. REVIEW OF SYSTEMS: No report of any significant abdominal pain. She has a terrible history with constipation. She has headache as above. She has been afebrile here in the hospital. There were no cardiopulmonary complaints. She feels weak. ALLERGIES: 1. OXYCODONE. 2. TEREPHTHALATE. 3. ASPIRIN. 4. IBUPROFEN. 5. MORPHINE. 6. OXYCODONE. 7. PREDNISONE. 8. ZOLPIDEM. 9. TARTRATE. MEDICATIONS: 1. Gabapentin. 2. Potassium. 3. Reglan. 4. Omeprazole 20 mg twice per day. 5. Vitamin D. 6. Cannabis oil. 7. Excedrin. 8. Multivitamin. 9. Zofran. PAST MEDICAL HISTORY: Gastric outlet obstruction. Recurrent anastomotic stenosis. Chronic headaches. Upper GI bleed. Overactive bladder. Fibromyalgia. Lupus. PAST SURGICAL HISTORY: Billroth-II, hysterectomy, appendectomy, left arm orthopedic surgery. The patient has had numerous repeat operations on the anastomosis. FAMILY HISTORY: Noncontributory. SOCIAL HISTORY: No habits. PHYSICAL EXAMINATION: The patient appears slightly pale, conversational, alert, oriented, appropriate, cooperative, conversational. Blood pressure 126/59, pulse 94, breathing 16, afebrile 97% on room air. The patient was not tachycardic. Good air entry was apparent. No labored breathing. Abdomen is soft, nondistended. No guarding. Skin: Warm and dry. Sclerae anicteric. LABORATORY DATA: Hemoglobin as above. White count 16.4, platelets 266, INR 1.03. Sodium 141, potassium 3.9, chloride 109, bicarb 20, BUN 20, creatinine 0.46, glucose 108, calcium 7.9. Liver tests normal. Albumin 3.5. ASSESSMENT AND PLAN: A 70-year-old with post balloon dilatation bleeding likely coming from the Billroth-II anastomosis. I suspect this has been magnified or exacerbated or even caused by the persistent use of Excedrin Extra-Strength. Continue PPI drip. Repeat EGD is discussed to determine the nature of the anastomosis and in essence risk stratify for recurrent bleeding. I do not believe she is presently bleeding. Please see endoscopy notes for further details.
--- NOTE | 2016-07-30 17:35 | NUR ---
BP/Mentation BP stable this shift, SBP 120s-130s. Tele SR 70s-80s. Pt alert and able to ambulate unassisted, with CGA, to stretcher for endoscopy. SBA to BSC to void. Denies dizziness/lightheadedness. No n/v/d, no overt s/sx of bleeding. See endo note for procedure details. Full liquid diet ordered by Dr. Bush. Addendum: 07/30/16 at 1744 by DOMENICA CARMONA RN MILLER Pt states she has had a MILLER all day, this has not been communicated until 1729 to this RN, despite pain assessments throughout the day. notified, ordered APAP, pt states this does not work for her Excedrin does; notified. Awaiting orders.
[2016-07-30] MEDS: Butalbital-Acet-Caffeine Tablet PO PRN (18:23)
--- NOTE | 2016-07-30 18:59 | NUR ---
Case Management: Pt complaining of headache but still willing to speak with me. CAITLYN explained to patient at 1745, all questions answered. Signed original placed in chart, copy given to patient. Pt also requested a [facility] form which I did give to her, she is fearful of the cost of care. Kristina He RN
--- NOTE | 2016-07-30 23:20 | NUR ---
ACTIVITY Pt transferred from room 2018 to 2028. Pt able to ambulate to new room, steady gait. Pt is independent in room at this time. Pt c/o headache, Fioricet given with good results. Pt denies N/V, no hematemesis noted, H&H stable. Pt was tolerating PO intake, so IV fluids dc'd and SL. No other issues noted at this time.
[2016-07-31] MEDS: Butalbital-Acet-Caffeine Tablet PO PRN ×2 (00:06→09:10)
[2016-07-31] MEDS: 0.9% Sodium Chloride 1,000 ML IV SCH (00:32)
--- NOTE | 2016-07-31 00:43 | ENDO ---
[address] [address] ENDOSCOPY PROCEDURE PATIENT: ABDULKADIR WHITE : 1945 MR#: [id number] ADMIT: 07/30/2016 JOB ID: [id number] DATE OF PROCEDURE: 07/30/2016 PROCEDURE: Esophagogastroduodenoscopy. INDICATIONS: A 70-year-old female with bleeding following stricture dilatation from two days ago. EQUIPMENT: [id number]. SEDATION: Monitored anesthesia as provided by Dr. Mark Ramirez. COMPLICATIONS: None identified. PROCEDURE INFORMATION: After the risks and benefits were explained, written and verbal informed consent was obtained. The patient was brought into the endoscopy suite and placed into the left lateral decubitus position. Sedation was achieved as above. The scope was introduced into the mouth through the bite block and advanced to the stomach. I cleaned out the debris and uncovered the anastomosis. We were then able to advance into the duodenum proper through the previously dilated area. This was relatively easy to do so. We did not induce any bleeding. The stomach was ultimately decompressed and the scope removed from the patient who tolerated the procedure well. FINDINGS: 1. Esophagus: No pathology throughout. The GEJ was at about 37 cm from the incisors. No acute erosive changes, strictures. No mass lesions. No Bertha-Nam tear. 2. Stomach: The patient had coffee-ground debris still present, mild volume. This was fairly easily aspirated up through the accessory channel of the scope with some irrigation. The anastomosis was uncovered. I did not see any sign of any active oozing or red blood anywhere. The ulcer that was present through the stenosis appeared relatively bland-based. I did not see any significant nonbleeding visible vessel at present. 3. Duodenum beyond the anastomosis appeared within normal limits. ENDOSCOPIC DIAGNOSIS: Ulcerated Billroth II anastomosis without any ongoing bleeding. RECOMMENDATIONS: 1. Continue b.i.d. proton pump inhibitor. 2. Patient can be started on a full liquid diet. 3. Again, it is emphasized that she not take any form of nonsteroidal anti-inflammatory therapy or aspirin.
[2016-07-31 02:54] VITALS: BP 176/90; PULSE 66; RESP 16; O2SAT 95
[2016-07-31 04:15] VITALS: BP 103/67; PULSE 77; RESP 16; O2SAT 97
[2016-07-31 04:52] LABS: Mean Corpuscular Hemoglobin 27.7 pg (27.0-35.0); Mean Corpuscular Volume 90.7 fL (81-100)
[2016-07-31 05:35] VITALS: PULSE 72
[2016-07-31 08:00] VITALS: PULSE 81
[2016-07-31 08:59] VITALS: BP 116/54; PULSE 76; RESP 16; O2SAT 81
[2016-07-31] MEDS: Pantoprazole 4 mg/mL 10 mL Inj IVPUSH SCH (09:04)
[2016-07-31] MEDS ORDERED: BUTA-238 PO (10:10)
[2016-07-31] MEDS ORDERED: PANT40TA2 PO ×2 (10:10→10:52)
--- NOTE | 2016-07-31 10:17 | PCM.DIMED ---
Neela Bonilla DO 07/31/16 1017: Discharge Instructions Date of Service Jul 31, 2016 Dates of Hospitalization Jul 30, 2016 at 00:30 Discharge Diagnosis Discharge Diagnosis You had some blood in your stomach. Diet Discharge Diet: No restrictions Activity Discharge Activity: Limited until seen by PCP Call your provider Call your provider for: Fever or Chills, Shortness of breath, Bleeding, Chest pain, Vomitting, Excessive diarrhea, Weakness (unilateral) Patient Instructions Patient Instructions Stop taking any ibuprofen (Motrin or Excedrin) or other non-steroidal anti- inflammatories (NSAIDs). Make sure to chew your food into small pieces and try to eat soft foods. Stop omeprazole. Start pantoprazole 40 mg twice per day for 6 weeks. Then discuss with your parts clerk plant maintenance, Dr. Bush, about needing to continue this medication after 6 weeks. Follow up with Dr. Bush as previously scheduled in 6 weeks. If you have any issues prior to that appointment, please call his office. I have given you a prescription for Fioricet. You can take 1 tablet every 4 hours as needed for headache. Do not take with other medications containing acetaminophen. [facility] up [facility] for [facility] first available appointment to discuss your neck pain and headaches and for osteopathic manipulative treatment (OMT). Follow up with your primary care provider in 7-10 days to review your hospital stay. Follow-up Provider: Megan Young PA-C Follow-up with PCP in: 1 week Provider: Manuel Bush MD Follow-up in: 6 weeks (previously scheduled) Mid-level Provider (F9): Neela Bonilla DO Follow-up with Mid-level in: Other (first available for headache/neck pain) Shamika Bird DO 07/31/16 1240: Discharge Instructions Attending's Statement The patient was seen and examined together with Dr. Bonilla on 07/31/16 and I agree with the history, exam and plan as outlined in the note above. Neela Bonilla DO Jul 31, 2016 10:17 Shamika Bird DO Jul 31, 2016 12:40
--- NOTE | 2016-07-31 14:10 | NUR ---
Discharge Pt discharged to home with transportation by her daughter. Pt's IV's dc'd intact. Telemetry box was removed and tech notified. Pt's discharge instructions, new medications and follow up appointments were reviewed. All questions were answered and pt voiced understanding. All belongings were gathered for transport with pt. Pt was escorted off unit by NOEMI to her daughter's vehicle.
--- NOTE | 2016-07-31 15:30 | PCM.DC.MED ---
Discharge Summary Date of Service Jul 31, 2016 Dates of Hospitalization Date of Hospital Admission Jul 30, 2016 at 00:30 Date of Discharge: Jul 31, 2016 Providers: Admitting Physician: Arlet Herrera DO Primary Care Physician: Megan Young PA-C Attending Physician: Arlet Herrera DO Diagnosis at Time of Discharge Diagnosis at Time of Discharge Hematemesis Gastric outlet obstruction Headaches Fibromyalgia Consultations Gastroenterology: Continue twice per day proton pump inhibitor and emphasized that she not take any form of nonsteroidal anti-inflammatory therapy or aspirin. Procedures ECG 12 Lead reviewed by admitting physician from record review Sinus HR 82, no ischemic change Invasive Procedures Upper endoscopy: FINDINGS: 1. Esophagus: No pathology throughout. The GEJ was at about 37 cm from the incisors. No acute erosive changes, strictures. No mass lesions. No Bertha-Nam tear. 2. Stomach: The patient had coffee-ground debris still present, mild volume. This was fairly easily aspirated up through the accessory channel of the scope with some irrigation. The anastomosis was uncovered. I did not see any sign of any active oozing or red blood anywhere. The ulcer that was present through the stenosis appeared relatively bland-based. I did not see any significant nonbleeding visible vessel at present. 3. Duodenum beyond the anastomosis appeared within normal limits. Brief History From the history and physical performed by Dr. Arlet Herrera on 07/30/2016 : 70yoF with past medical history of PUD and perforated ulcer s/p bill krishnan, gastric outlet obstruction with recent EGD transferred from [place] due to concern for hematemesis post procedure. Hospital Course 70yoF with past medical history of peptic ulcer disease and perforated ulcer, gastric outlet obstruction with recent EGD who was transferred from [place] due to concern for hematemesis post procedure. During her hospital stay, her hemoglobin and hematocrit were monitored and were stable. She underwent an EGD that showed no signs of any active oozing or red blood anywhere. Her nausea and vomiting had resolved. She felt stronger and was tolerating a full liquid diet on day of discharge. Her hemoglobin and hematocrit remained stable and she was discharged from the hospital. She was strongly advised to not take any medications with ibuprofen or other NSAIDs including Excedrin. She was switched to Fioricet for her headaches instead. For a more detailed outline of her hospital course see below: Hematemesis, acute, present on admission -likely secondary to gastric ulcer from chronic NSAID use, PUD less likely, perforation less likely - repeated H&H every 4 hours and was stable -pantoprazole 40 IV BID was given - Pt did not require transfusion during stay Gastric outlet obstruction, chronic, present on admission -recent EGD with dilation -advanced diet to full liquids after endoscopy Headaches, chronic -pt took Excedrin for this problem and discontinued due to hematemesis -Started Fioricet as needed for headaches with relief Fibromyalgia, chronic. -resumed gabapentin Exam Vital Signs (Last) Date Time Temp Pulse Resp B/P Pulse Ox O2 Delivery O2 Flow Rate FiO2 07/31/16 08:59 36.4 76 16 116/54 81 Room Air 07/30/16 08:40 2.00 Exam General: Sitting upright in bed eating breakfast, Alert, Oriented X3, Cooperative, No acute Distress Eyes: PERRLA, Scleral Anicteric Mouth: Mouth Normal, Mucous Membranes Moist/[place] Neck: Supple, no Thyromegaly, trachea central. Chest & Lungs: Clear to auscultation & percussion, No adventitious breath sounds, no crackles, no wheeze Cardiovascular: Normal S1, Normal S2, No Murmurs/Rubs/Gallops, Regular Rate/ Rhythm, (No JVD, no peripheral edema) Pulses: Radial (present and equal), Dorsalis Pedi (present and equal) Abdomen: Soft, non-tender, Non-distended, hypoactive bowel tones. Musculoskeletal: Unremarkable. Normal range of motion, no swollen or erythematous joints Extremities: No edema, no cyanosis, no clubbing. Skin: No rashes. Warm and dry, no erythematous areas Neurological: Grossly neurologically intact, Normal Speech, Sensation Intact Lymphatic: Lymph nodes Cervical and Axillary not palpable Test 07/30/16 01:40 07/31/16 04:40 Neutrophils (%) (Auto) 86.7% (40-74) Lymphocytes (%) (Auto) 8.6% (14-46) Monocytes (%) (Auto) 4.1% (4-12) Eosinophils (%) (Auto) 0.1% (0-5) Basophils (%) (Auto) 0.2% (0-3) Prothrombin Time 11.0sec (8.1-12.5) Prothromb Time International Ratio 1.03ratio Total Bilirubin 0.2mg/dL (0.0-1.2) Aspartate Amino Transf (AST/SGOT) 13U/L (0-50) Alanine Aminotransferase (ALT/SGPT) 12U/L (0-32) Alkaline Phosphatase 85U/L (25-165) Total Protein 5.8g/dL (6.4-8.4) Albumin 3.5g/dL (3.4-5.0) Hold Lemon Top Tube Received (Received) White Blood Count 7.1th/mm3 (3.8-10.1) Red Blood Count 3.11mil/mm3 (3.90-5.20) Hemoglobin 8.6g/dL (12.0-15.6) Hematocrit 28.2% (35.0-46.0) Mean Corpuscular Volume 90.7fL (81-100) Mean Corpuscular Hemoglobin 27.7pg (27.0-35.0) Mean Corpuscular Hemoglobin Concent 30.5% (32.0-37.0) Red Cell Distribution Width 16.8% (12.3-15.4) Platelet Count 253bil/L (150-400) Sodium Level 140mEq/L (134-144) Potassium Level 3.8mEq/L (3.5-5.2) Chloride Level 107mEq/L (97-108) Carbon Dioxide Level 22mmol/L (18-29) Blood Urea Nitrogen 11mg/dL (8-27) Creatinine 0.42mg/dL (0.57-1.00) Estimat Glomerular Filtration Rate 212mL/min (>59) Glucose Level 102mg/dL (60-99) Calcium Level 8.9mg/dL (8.5-10.1) Discharge Medications Discharge Medications ([Cannabis Oil]) 1 MG PO DAILY (Reported) Cholecalciferol (Vitamin D3) (Vitamin D) 1,000 Unit Capsule 2,000 UNIT PO DAILY (Reported) Metoclopramide (Reglan) 5 Mg Tablet 5 MG PO QID (Reported) Pantoprazole DR (Protonix) 40 Mg Tablet 40 MG PO BID Prescribed by: NEELA BONILLA DO Potassium (Potassium) 99 Mg Tablet 99 MG PO DAILY (Reported) As needed Butalbital/Acetamin/Caff 50-300-40 mg (Butalbital/Acetamin/Caff 50-300-40 mg) 1 Each Tablet 1 TAB PO Q4H PRN PRN Headache Do not take more than 4000 mg of acetaminophen per day. Prescribed by: NEELA BONILLA DO Gabapentin (Gabapentin) 100 Mg Capsule 100 MG PO QID PRN PRN For Pain (Reported ) Followup Plan Discharge Diet: No restrictions Discharge Activity: Limited until seen by PCP Patient Instructions Stop taking any ibuprofen (Motrin or Excedrin) or other non-steroidal anti- inflammatories (NSAIDs). Make sure to chew your food into small pieces and try to eat soft foods. Stop omeprazole. Start pantoprazole 40 mg twice per day for 6 weeks. Then discuss with your offset printer, Dr. Bush, about needing to continue this medication after 6 weeks. Follow up with Dr. Bush as previously scheduled in 6 weeks. If you have any issues prior to that appointment, please call his office. I have given you a prescription for Fioricet. You can take 1 tablet every 4 hours as needed for headache. Do not take with other medications containing acetaminophen. [facility] up [facility] for [facility] first available appointment to discuss your neck pain and headaches and for osteopathic manipulative treatment (OMT). Follow up with your primary care provider in 7-10 days to review your hospital stay. Follow-up Provider: Megan Young PA-C Follow-up with PCP in: 1 week Provider: Manuel Bush MD Follow-up in: 6 weeks (previously scheduled) Mid-level Provider: Neela Bonilla DO Follow-up with Mid-level in: Other (first available for headache/neck pain) Time spent Greater than 35 minutes Attending Statement The patient was seen and examined together with Dr. Bonilla on 07/31/16 and I have added additional information to the note above. Neela Bonilla DO Jul 31, 2016 15:30 Shamika Bird DO Jul 31, 2016 18:07 Follow-up in: 6 weeks (previously scheduled) Mid-level Provider: Neela Bonilla DO Follow-up with Mid-level in: Other (first available for headache/neck pain) Neela Bonilla DO Jul 31, 2016 15:30
== END 2016-07-31 14:15 | disposition home or self-care (01) ==
LOC: PCC 00:30 → INTOOBSV 00:30 → PCC 19:55
PROVIDERS: ADMIT Internal Medicine; ATTEND Internal Medicine
DX: K92.0 Hematemesis (principal); K25.5 Chronic or unspecified gastric ulcer with perforation; K63.89 Other specified diseases of intestine; K31.1 Adult hypertrophic pyloric stenosis; N32.81 Overactive bladder; M79.7 Fibromyalgia; M32.9 Systemic lupus erythematosus, unspecified; F41.8 Other specified anxiety disorders; Z90.710 Acquired absence of both cervix and uterus; Z98.890 Other specified postprocedural states; Z79.1 Long term (current) use of non-steroidal anti-inflammatories (NSAID)
CPT/HCPCS: 36415; 43235; 80048; 80053; 85014; 85018; 85025; 85027; 85610; 86850; 96374; 96376; G0378; G0379; J7030